=== PATIENT | male | born 1965 | race Caucasian/White ===

== ENCOUNTER 2021-03-05 07:39 | Emergency (ER) | payer SELFPAY ==
[2021-03-05 07:42] VITALS: BP 152/89; PULSE 73; RESP 16; TEMP 37.2; O2SAT 93; BMI 34.4
--- NOTE | 2021-03-05 07:43 | W.ED.WEAKNES ---
HPI - Weakness General: Chief complaint: Weakness Stated complaint: WEAKNESS Time Seen by Provider: 03/05/21 07:42 History of Present Illness: HPI Narrative: 55-year-old male presents to the emergency room via EMS complaining of weakness. He got up this morning went outside to smoke a cigarette got dizzy felt weak went back into the house and laid down on the floor and called EMS. He denies any diarrhea denies any chest pain. No diarrhea no anosmia he has had some moderate myalgias. Denies any fever sweats or flu like symptoms. He has recently been exposed to COVID. He was evidently staying at a group home where 2 people he was in close contact with tested positive. States he feels much better since arriving here. MD Complaint: generalized weakness Onset (ago): minute(s) Duration: intermittent Migration: none Severity: mild Relieving factors: none Exacerbating factors: none Associated symptoms: Denies chest pain, chills, confusion, melena, decreased appetite, diaphoresis, dysuria, easy bruising, fever(s), headache(s), myalgias, nausea, rash, short of breath, syncope or vomiting Review of Systems Const: Denies: fever(s), chills or diaphoresis ENMT: Denies: throat pain, ear or mastoid pain, nasal discharge or nasal congestion Card: Denies: chest pain or syncope Resp: Denies: dyspnea, productive cough or non-productive cough GI: Denies: nausea, vomiting or melena : Denies: dysuria Skin/Breast: Denies: rash or pruritus Neuro: Denies: headache(s) or confusion Abran/Lymph: Denies: easy bruising [facility] ED PFSH: Medical History (Updated 03/05/21 @ 10:31 by Gregory Lazcano DO) HTN (hypertension) Surgical History (Updated 03/05/21 @ 07:57 by Gregory Lazcano DO) H/O hand surgery Social History (Updated 03/05/21 @ 07:57 by Gregory Lazcano DO) Smoking and tobacco status: current every day smoker cigarettes Packs smoked per day: 0.5 Years cigarettes smoked: 40 Number of cigarettes per day: 6-10 Physical Exam Const: COMMON NORMALS: no acute distress GENERAL APPEARANCE: cooperative and comfortable ORIENTATION/CONSCIOUSNESS: Yes awake, Yes oriented to person, Yes oriented to place and Yes oriented to time HENMT: COMMON NORMALS: normocephalic, atraumatic and hearing grossly normal bilaterally HEAD & SCALP: normocephalic and atraumatic Neck/C-Spine: COMMON NORMALS: no JVD Resp: COMMON NORMALS: normal respiratory effort, No retractions, No use of accessory muscles and clear to auscultation bilaterally AUSCULTATION: clear to auscultation bilaterally Cardio: COMMON NORMALS: no JVD, regular rate, regular rhythm and No murmurs present (Cardio) RATE: regular rate RHYTHM: regular rhythm GI: COMMON NORMALS: Soft to palpation and No hepatosplenomegaly present AUSCULTATION: Yes normoactive bowel sounds PALPATION: Yes Soft to palpation, No Tenderness to palpation present (GI), No Guarding due to palpation present (GI) and Yes No hepatosplenomegaly present Extremity: COMMON NORMALS: normal to inspection, capillary refill normal, no clubbing, cyanosis or edema, no calf tenderness and no pedal edema Neuro: SENSORIUM/ORIENTATION: Yes oriented to person, Yes oriented to place and Yes oriented to time Skin: COMMON NORMALS: no rashes or lesions noted GENERAL SKIN EXAM: no rashes or lesions noted Course Vital Signs: Vital signs: Vital Signs Temperature 99.0 F 03/05/21 07:42 Pulse Rate 83 03/05/21 11:39 Respiratory Rate 13 03/05/21 11:39 Blood Pressure 180/103 03/05/21 11:39 Pulse Oximetry 95 03/05/21 11:39 MDM - Weakness MDM Narrative: Medical decision making narrative: Patient is hypertensive. Does not require oxygen. Labs imaging and EKG reviewed on the chart is COVID was positive.'s troponin decreased is EKG does not show any acute changes. We will go ahead and discharge the patient home supportive cares set him up for follow-up with telehealth. He did go home with home oxygen. Lab Data: Labs: Lab Results 03/05/21 03/05/21 03/05/21 07:55 07:55 07:55 WBC 5.3 10^3/uL 10^3/ uL (4.0-10.0) RBC 5.17 10^6/uL 10^6 /uL (4.1-5.3) Hgb 15.4 g/dL g/dL (11.7-16.6) Hct 46.5 % % (42.0-52.0) MCV 89.9 fl fl (80-94) MCH 29.8 pg pg (28.0-34.0) MCHC 33.1 g/dL g/dL (30.0-36.0) RDW 13.9 % % (12.1-15.1) Plt Count 108 10^3/cmm L 10 ^3/cmm (130-400) MPV 10.7 fL H fL (7.4-10.4) Neut % (Auto) 72.3 % % Lymph % (Auto) 21.9 % % George % (Auto) 5.2 % % Eos % (Auto) 0.2 % % Baso % (Auto) 0.2 % % Neut # (Auto) 3.86 10^3/uL 10^3 /uL (1.8-7.7) Lymph # (Auto) 1.2 10^3/uL 10^3/ uL (0.8-4.8) [place] # (Auto) 0.3 10^3/uL 10^3/ uL (0.2-0.9) Eos # (Auto) 0.0 10^3/uL 10^3/ uL (0.0-0.8) Baso # (Auto) 0.0 10^3/uL 10^3/ uL (0.0-0.1) Nucleated RBC % (a uto) 0 % % Nucleated RBCs # 0.0 /100WBC /100W BC Sodium 127 mmol/L L mmol /L (136-145) Potassium 3.5 mmol/L mmol/L (3.5-5.1) Chloride 91 mmol/L L mmol/ L (98-107) Carbon Dioxide 23 mmol/L mmol/L (22-29) Anion Gap 16.5 (5-19) BUN 13 mg/dL mg/dL (6-20) Creatinine 1.2 mg/dL mg/dL (0.7-1.2) GFR Calculation 63.1 mL/min L mL/ min (90-130) Glucose 98 mg/dL mg/dL (65-115) Calculated Osmolal ity 264 mOsm/kg L mOs m/kg (285-295) Calcium 8.9 mg/dL mg/dL (8.5-10.5) Total Bilirubin 0.3 mg/dL mg/dL (0.15-1.2) AST 15 U/L U/L (0-40) ALT 11 U/L U/L (0-41) Alkaline Phosphata se 78 IU/L IU/L (40-130) Troponin T Baselin e 33 ng/L H ng/L (0-15) Troponin T 120 Min [place] Delta Troponin T Total Protein 6.7 g/dL g/dL (6.6-8.7) Albumin 4.0 g/dL g/dL (3.5-5.2) Globulin 2.7 g/dL g/dL (1.3-4.6) Coronavirus 229E ( PCR) SARS-CoV-2 (PCR) 03/05/21 03/05/21 08:15 10:05 WBC RBC Hgb Hct MCV MCH MCHC RDW Plt Count MPV Neut % (Auto) Lymph % (Auto) [place] % (Auto) Eos % (Auto) Baso % (Auto) Neut # (Auto) Lymph # (Auto) [place] # (Auto) Eos # (Auto) Baso # (Auto) Nucleated RBC % (a uto) Nucleated RBCs # Sodium Potassium Chloride Carbon Dioxide Anion Gap BUN Creatinine GFR Calculation Glucose Calculated Osmolal ity Calcium Total Bilirubin AST ALT Alkaline Phosphata se Troponin T Baselin e Troponin T 120 Min [place] 27.50 ng/L H ng/L (0-15) Delta Troponin T -5.50 ABS# L ABS# (0-10) Total Protein Albumin Globulin Coronavirus 229E ( PCR) Not detected (NOT DETECT) SARS-CoV-2 (PCR) Detected A (NOT DETECT) Discharge Plan Discharge Patient Disposition: Home Clinical Impression: COVID-19, HTN (hypertension) Condition: Stable Prescriptions: New dexamethasone 6 mg tablet 6 mg PO DAILY Qty: 7 RF: 0 amlodipine 5 mg tablet 5 mg PO DAILY Qty: 30 RF: 0 albuterol sulfate 90 mcg/actuation HFA aerosol inhaler 2 inh INHALATION Q4H PRN (Reason: shortness of breath or wheezing) Qty: 18 RF: 0 Discharge Orders: Discharge ED (Routine); Ordered 03/05/21 Ordered By: Gregory Lazcano Other Ambulatory Orders: DME: Oxygen (EVERY OTHER DAY) Timeframe: [id number] Location: None Selected Ordered By: Gregory Lazcano Discharge Diet: Usual diet Discharge Activity: Increase activity as tolerated Patient Instructions: Droplet Precautions (ED), COVID-19 (Coronavirus Disease 2019) (ED), How to Recover from COVID-19 at Home (ED), Opioid Safety Activity Restrictions/Additional Instructions: Maintain self quarantine due to the COVID test. Health department will call you with further instructions. We will set you up for home oxygen and started on oral steroids use albuterol as needed. Case management to make arrangements for a telehealth visit follow-up with the midlevel provider. Return to emergency room for further problems. Coding Level of Care Code ED Automotive Specialty Technician for Meghann Fwd Exam Comprehensive
--- NOTE | 2021-03-05 07:51 | XRR_ITS ---
PROCEDURE INFORMATION: Exam: XR Chest Exam date and time: 03/05/2021 7:51 AM Age: 55 years old Clinical indication: Cough and dyspnea; Additional info: Dyspnea/cough TECHNIQUE: Imaging protocol: XR of the chest. Views: 1 view. COMPARISON: No relevant prior studies available. FINDINGS: Lungs: Mildly increased interstitial markings at the lung bases. No consolidation. Pleural spaces: Unremarkable. No pleural effusion. No pneumothorax. Heart/Mediastinum: Unremarkable. No cardiomegaly. Bones/joints: Unremarkable. XR/XR chest 1V portable [id number] IMPRESSION: Nonspecific mildly increased interstitial markings lung bases. No consolidation.
--- NOTE | 2021-03-05 07:53 | ECG_ITS ---
[facility] Test Date: 2021-03-05 Pat Name: Lj Wynn Department: Room: Gender: Male Obstetrical Nurse: : 1965 Requested By: Gregory Molina Order Number: [id number] Roopa MD: Pura Paulino M.D. Measurements Intervals [place] Rate: 74 P: 17 TX: 141 QRS: 4 QRSD: 102 T: 28 QT: 395 QTc: 438 Interpretive Statements SINUS RHYTHM ST DEVIATION AND MODERATE T-WAVE ABNORMALITY, CONSIDER LATERAL ISCHEMIA [-0.1+ mV T-WAVE IN I/aVL/V5/V6] No previous ECG available for comparison Electronically Signed On 03-06-2021 8:16:54 PHOTOGRAPHIC EQUIPMENT TECHNICIAN by Pura Paulino M.D. [id number]
[2021-03-05 08:06] LABS: Basophils % 0.2 %; Eosinophils % 0.2 %; Hematocrit 46.5 % (42.0-52.0); Hemoglobin 15.4 g/dL (11.7-16.6); Lymphocytes # 1.2 10^3/uL (0.8-4.8); Lymphocytes % 21.9 %; Mean Corpuscular HGB Conc 33.1 g/dL (30.0-36.0); Mean Corpuscular Hemoglobin 29.8 pg (28.0-34.0); Mean Corpuscular Volume 89.9 fl (80-94); Mean Platelet Volume 10.7 fL (7.4-10.4); Monocytes # 0.3 10^3/uL (0.2-0.9); Monocytes % 5.2 %; Neutrophils # 3.86 10^3/uL (1.8-7.7); Neutrophils % 72.3 %; Nucleated Red Blood Cells % 0 %; Platelet Count 108 10^3/cmm (130-400); Red Blood Count 5.17 10^6/uL (4.1-5.3); Red Cell Distribution Width 13.9 % (12.1-15.1); White Blood Count 5.3 10^3/uL (4.0-10.0)
[2021-03-05 08:17] VITALS: BP 149/80; PULSE 74; RESP 22; O2SAT 96
[2021-03-05 08:21] LABS: Alanine Aminotransferase 11 U/L (0-41); Alkaline Phosphatase 78 IU/L (40-130); Anion Gap 16.5 (5-19); Aspartate Amino Transferase 15 U/L (0-40); Blood Urea Nitrogen 13 mg/dL (6-20); Calcium 8.9 mg/dL (8.5-10.5); Carbon Dioxide 23 mmol/L (22-29); Chloride 91 mmol/L (98-107); Globulin 2.7 g/dL (1.3-4.6); Glomerular Filtration Rate 63.1 mL/min (90-130); Glucose 98 mg/dL (65-115); Osmolality Calculated 264 mOsm/kg (285-295); Potassium 3.5 mmol/L (3.5-5.1); Sodium 127 mmol/L (136-145); Total Bilirubin 0.3 mg/dL (0.15-1.2); Total Protein 6.7 g/dL (6.6-8.7)
[2021-03-05 08:23] LABS: Troponin(5th) Baseline 33 ng/L (0-15)
[2021-03-05 10:11] LABS: Adenovirus Not Detected (NOT DETECT); Chlamydia Pneumoniae Not Detected (NOT DETECT); Coronavirus 229E,HKU1,NL63,OC4 Not Detected (NOT DETECT); Human Metapneumovirus Not Detected (NOT DETECT); Human Rhinovirus/Enterovirus Not Detected (NOT DETECT); Influenza A Not Detected (NOT DETECT); Influenza A H1 Not Detected (NOT DETECT); Influenza A H1-2009 Not Detected (NOT DETECT); Influenza A H3 Not Detected (NOT DETECT); Influenza B Not Detected (NOT DETECT); Mycoplasma Pneumoniae Not Detected (NOT DETECT); Parainfluenza Virus Type 1 Not Detected (NOT DETECT); Parainfluenza Virus Type 2 Not Detected (NOT DETECT); Parainfluenza Virus Type 3 Not Detected (NOT DETECT); Parainfluenza Virus Type 4 Not Detected (NOT DETECT); Respiratory Syncytial Virus A Not Detected (NOT DETECT); Respiratory Syncytial Virus B Not Detected (NOT DETECT); SARS-COV-2 Detected (NOT DETECT)
[2021-03-05 11:10] VITALS: BP 180/103; PULSE 83; RESP 13; O2SAT 94; O2SAT 95; O2SAT 96
[2021-03-05 11:39] VITALS: BP 180/103; PULSE 83; RESP 13; O2SAT 95
--- NOTE | 2021-03-07 10:04 | PC.SOCIAL ---
Received referral for Telehealth visit for follow up FARIHA. Called [facility] office they could do this visit today at 11am however unable to reach. Left message for patient to return call and there is only one number for patient and the same number for contact. If patient returns call will see what timeframes he has available to try and schedule an appt.
== END 2021-03-05 11:39 | disposition home or self-care (01) ==
PROVIDERS: Emergency Provider Family Medicine
DX: U07.1 COVID-19 (principal); I10 Essential (primary) hypertension; Z20.822 Contact with and (suspected) exposure to COVID-19; F17.210 Nicotine dependence, cigarettes, uncomplicated
CPT/HCPCS: 36415; 71045; 80053; 84484; 85025; 87635; 93005; 99284

== ENCOUNTER 2021-11-26 13:01 | Inpatient (IN) | payer MEDICAID, SELFPAY ==
[2021-11-26] VITALS (32 sets, daily range): BP systolic 150–269; BP diastolic 81–152; PULSE 58–94; RESP 8–25; TEMP 36.5–36.6; O2SAT 89–98
--- NOTE | 2021-11-26 13:10 | XRR_ITS ---
PROCEDURE INFORMATION: Exam: XR Chest Exam date and time: 11/26/2021 1:24 PM Age: 56 years old Clinical indication: Other: HTN, vomiting, weakness; Additional info: Dyspnea/cough TECHNIQUE: Imaging protocol: Radiologic exam of the chest. Views: 1 view. COMPARISON: CR XR chest 1V portable [id number] 03/05/2021 8:19 AM FINDINGS: Lungs: Unremarkable. No consolidation. Pleural spaces: Unremarkable. No pleural effusion. No pneumothorax. Heart/Mediastinum: Unremarkable. No cardiomegaly. Bones/joints: Unremarkable. XR/XR chest 1V portable [id number] IMPRESSION: No acute findings.
--- NOTE | 2021-11-26 13:18 | W.ED.GENADLT ---
HPI - General Adult General: Chief complaint: General Medical Stated complaint: N/V Time Seen by Provider: 11/26/21 13:09 Source: patient Mode of arrival: EMS History of Present Illness: 56-year-old male who presents emergency room via ambulance from a local homeless [place] [facility]. He states been lightheaded dizzy when he stands up and is a couple episodes where he is felt fallen due to that. Additionally has had some vomiting and reporting its been slightly dark in color. No hematemesis. He denies any chest pain denies any dysuria urgency or frequency. Patient has significant Blood pressure elevation no focal neurologic deficits are noted Onset (ago): day(s) (1) Radiation: non-radiation Severity: mild Pain Consistency: constant Relieving factors: none Exacerbating factors: none Associated symptoms: Reports nausea and vomiting; Deny chest pain, confusion, cough, diaphoresis, decreased appetite, dyspnea, fevers/chills, headache(s), malaise, rash, palpitations, seizures, short of breath, syncope or weakness Treatments prior to arrival: none Review of Systems Const: Denies: fever(s), chills, malaise or diaphoresis ENMT: Denies: throat pain, ear or mastoid pain, nasal discharge or nasal congestion Card: Denies: chest pain, palpitations or syncope Resp: Denies: dyspnea GI: Reports: nausea, vomiting and coffee ground emesis; Denies: abdominal pain : Denies: flank pain, dysuria, urinary frequency or urinary urgency Musc: Denies: neck pain or back pain Skin/Breast: Denies: rash Neuro: Denies: headache(s) or confusion PFSH ED PFSH: Medical History COVID-19 Diastolic heart failure due to valvular disease Financial difficulty HTN (hypertension) Nicotine dependence Polycythemia Sheltered homelessness Stroke Uncontrolled hypertension Surgical History H/O hand surgery Family History Father Hypertension Other Hyperlipidemia Denies family history of Diabetes CAD (coronary artery disease) Clotting disorder Dementia Chronic kidney disease (CKD) Anesthesia complication Bleeding disorder Lung disease Cancer Stroke Social History (Reviewed 12/10/21 @ 20:57 by CONSTANZA Strickland Smoking and tobacco status: current every day smoker cigarettes Packs smoked per day: 0.5 Years cigarettes smoked: 40 [ Other cigarette details: 05 PPD since 8yrs old. 24PY. longest time quit for was 6 months.] Alcohol intake: former Former alcohol use details: Quit due to inability to afford alcohol Desire information about alcohol rehabilitation?: No Counseling given: No Substance/Drug Use: never Desire information about substance/drug rehabilitation?: No Counseling given: No Adopted: No Caregiver/support person: No Lives independently: No service: No Current occupational status: unemployed Current gender identity: Male Special walter needs: No Physical Exam Const: COMMON NORMALS: no acute distress GENERAL APPEARANCE: cooperative and comfortable ORIENTATION/CONSCIOUSNESS: Yes awake, Yes oriented to person, Yes oriented to place and Yes oriented to time HENMT: COMMON NORMALS: normocephalic, atraumatic and hearing grossly normal bilaterally HEAD & SCALP: normocephalic and atraumatic Resp: COMMON NORMALS: normal respiratory effort, No retractions, No use of accessory muscles and clear to auscultation bilaterally AUSCULTATION: clear to auscultation bilaterally Cardio: COMMON NORMALS: regular rate, regular rhythm and No murmurs present (Cardio) RATE: regular rate RHYTHM: regular rhythm GI: COMMON NORMALS: Soft to palpation and No hepatosplenomegaly present AUSCULTATION: Yes normoactive bowel sounds PALPATION: Yes Soft to palpation, No Tenderness to palpation present (GI), No Guarding due to palpation present (GI) and Yes No hepatosplenomegaly present Extremity: COMMON NORMALS: normal to inspection, capillary refill normal, no clubbing, cyanosis or edema, no calf tenderness and no pedal edema Neuro: SENSORIUM/ORIENTATION: Yes oriented to person, Yes oriented to place and Yes oriented to time Skin: COMMON NORMALS: no rashes or lesions noted GENERAL SKIN EXAM: no rashes or lesions noted Course Vital Signs: Vital signs: Vital Signs Temperature 97.4 F L 11/29/21 15:16 Pulse Rate 90 11/29/21 15:16 Respiratory Rate 18 11/29/21 15:16 Blood Pressure 153/89 11/29/21 15:32 Pulse Oximetry 98 11/29/21 15:16 Oxygen Delivery Pa thod 11/29/21 08:05 [facility] - General Adult Medical Decision Making Elevation of blood pressure despite multiple medications there is no evidence of acute upper GI bleed however he does have accelerated hypertension and is nonresponsive to multiple medications. Will admit discussed with hospitalist orders written Medical Records I reviewed the patient's medical records. Lab Data I reviewed the patient's lab results. : 11/28/21 02:21 11/28/21 02:21 Radiology Impressions Chest X-Ray 11/26/21 13:10 IMPRESSION: No acute findings. Head CT 11/26/21 17:48 IMPRESSION: No acute intracranial abnormality. Renal Ultrasound 11/26/21 18:27 IMPRESSION: 1. Negative for renal obstruction. 2. No convincing sonographic evidence of Urolithiasis. Laboratory Results WBC 9.0 10^3/uL (4.0-10.0) 11/26/21 13:20 RBC 5.61 10^6/uL (4.1-5.3) H 11/26/21 13:20 Hgb 17.3 g/dL (11.7-16.6) H 11/26/21 13:20 Hct 51.3 % (42.0-52.0) 11/26/21 13:20 MCV 91.4 fl (80-94) 11/26/21 13:20 MCH 30.8 pg (28.0-34.0) 11/26/21 13:20 MCHC 33.7 g/dL (30.0-36.0) 11/26/21 13:20 RDW 12.6 % (12.1-15.1) 11/26/21 13:20 Plt Count 222 10^3/cmm (130-400) 11/26/21 13:20 MPV 10.2 fL (7.4-10.4) 11/26/21 13:20 Neut % (Auto) 78.6 % 11/26/21 13:20 Lymph % (Auto) 15.6 % 11/26/21 13:20 [place] % (Auto) 4.6 % 11/26/21 13:20 Eos % (Auto) 0.6 % 11/26/21 13:20 Baso % (Auto) 0.4 % 11/26/21 13:20 Neut # (Auto) 7.05 10^3/uL (1.8-7.7) 11/26/21 13:20 Lymph # (Auto) 1.4 10^3/uL (0.8-4.8) 11/26/21 13:20 [place] # (Auto) 0.4 10^3/uL (0.2-0.9) 11/26/21 13:20 Eos # (Auto) 0.1 10^3/uL (0.0-0.8) 11/26/21 13:20 Baso # (Auto) 0.0 10^3/uL (0.0-0.1) 11/26/21 13:20 Nucleated RBC % (auto) 0 % 11/26/21 13:20 Nucleated RBCs # 0.0 /100WBC 11/26/21 13:20 Sodium 140 mmol/L (136-145) 11/26/21 13:20 Potassium 3.6 mmol/L (3.5-5.1) 11/26/21 13:20 Chloride 95 mmol/L (98-107) L 11/26/21 13:20 Carbon Dioxide 33 mmol/L (22-29) H 11/26/21 13:20 Anion Gap 15.6 (5-19) 11/26/21 13:20 BUN 11 mg/dL (6-20) 11/26/21 13:20 Creatinine 1.0 mg/dL (0.7-1.2) 11/26/21 13:20 GFR Calculation 77.6 mL/min (90-130) L 11/26/21 13:20 Glucose 111 mg/dL (65-115) 11/26/21 13:20 Calculated Osmolality 290 mOsm/kg (285-295) 11/26/21 13:20 Calcium 9.7 mg/dL (8.5-10.5) 11/26/21 13:20 Total Bilirubin 0.5 mg/dL (0.15-1.2) 11/26/21 13:20 AST 10 U/L (0-40) 11/26/21 13:20 ALT 9 U/L (0-41) 11/26/21 13:20 Alkaline Phosphatase 121 U/L (40-130) 11/26/21 13:20 Troponin T Baseline 18 ng/L (0-15) H 11/26/21 13:20 Troponin T 120 Minute 17.37 ng/L (0-15) H 11/26/21 15:12 Delta Troponin T -0.63 ABS# (0-10) L 11/26/21 15:12 Troponin T Hi Sens 6Hr 20.26 ng/L (0-15) H 11/26/21 19:00 Troponin T Hi Sens 6Hr Delta 2.26 ng/L (0-12) 11/26/21 19:00 Total Protein 7.7 g/dL (6.6-8.7) 11/26/21 13:20 Albumin 4.6 g/dL (3.5-5.2) 11/26/21 13:20 Globulin 3.1 g/dL (1.3-4.6) 11/26/21 13:20 Lipase 18 U/L (13-60) 11/26/21 13:20 Urine Color Yellow (Yellow) 11/26/21 17:01 Urine Appearance Clear (CLEAR) 11/26/21 17: Urine pH 6.5 (5-7) 11/26/21 17: Ur Specific [place] 1.025 (1.005-1.030) 11/26/21 17: Urine Protein 2+ 11/26/21 17: Urine Glucose (UA) Negative (Normal) 11/26/21 17: Urine Ketones 1+ (Negative) A 11/26/21 17: Urine Blood Moderate (Negative) A 11/26/21 17: Urine Nitrate Negative 11/26/21 17: Urine Bilirubin Negative (Negative) 11/26/21 17: Urine Urobilinogen 0.2 mg/dL (Negative) 11/26/21 17: Ur Leukocyte Esterase Negative (Negative) 11/26/21 17:01 Urine RBC 5-10 /hpf (0-2) H 11/26/21 17:01 Urine WBC 0-4 /hpf (0-5) H 11/26/21 17:01 Ur Squamous Epith Cells None /hpf (0-5) 11/26/21 17: Amorphous Sediment Not Reportable 11/26/21 17: Urine Bacteria Trace /hpf (NONE) 11/26/21 17:01 Urine Mucus 2+ /hpf 11/26/21 17:01 Discharge Plan Discharge Patient Disposition: Admitted As Inpatient Admit Provider: Manuel,Talavera Clinical Impression: Malignant hypertensive urgency, Stage 3b chronic kidney disease (CKD), Elevated serum creatinine, Diastolic heart failure due to valvular disease Condition: Stable Coding Level of Care Code ED Research Study Assistant for Meghann Fwd Exam Detailed
--- NOTE | 2021-11-26 13:21 | ECG_ITS ---
[facility] Test Date: 2021-11-26 Pat Name: Lj Wynn Department: Room: Gender: Male Bellows Assembler: : 1965 Requested By: Gregory Molina Order Number: [id number] Roopa MD: Rodo Graham M.D. Measurements Intervals [place] Rate: 72 P: 58 MO: 149 QRS: 38 QRSD: 106 T: 63 QT: 447 QTc: 490 Interpretive Statements SINUS RHYTHM NONSPECIFIC ST & T-WAVE ABNORMALITY PROLONGED QT INTERVAL Compared to ECG 03/05/2021 08:13:11 Prolonged QT interval now present Possible ischemia no longer present T-wave abnormality still present Electronically Signed On 11-27-2021 22:03:04 CDT by Rodo Graham M.D. [id number]
[2021-11-26 13:26] LABS: Basophils % 0.4 %; Eosinophils # 0.1 10^3/uL (0.0-0.8); Eosinophils % 0.6 %; Hematocrit 51.3 % (42.0-52.0); Hemoglobin 17.3 g/dL (11.7-16.6); Lymphocytes # 1.4 10^3/uL (0.8-4.8); Lymphocytes % 15.6 %; Mean Corpuscular HGB Conc 33.7 g/dL (30.0-36.0); Mean Corpuscular Hemoglobin 30.8 pg (28.0-34.0); Mean Corpuscular Volume 91.4 fl (80-94); Mean Platelet Volume 10.2 fL (7.4-10.4); Monocytes # 0.4 10^3/uL (0.2-0.9); Monocytes % 4.6 %; Neutrophils # 7.05 10^3/uL (1.8-7.7); Neutrophils % 78.6 %; Nucleated Red Blood Cells % 0 %; Platelet Count 222 10^3/cmm (130-400); Red Blood Count 5.61 10^6/uL (4.1-5.3); Red Cell Distribution Width 12.6 % (12.1-15.1)
[2021-11-26] MEDS: ondansetron 2 mg/ML SDV 2 mL 4 MG IVP (13:42)
[2021-11-26] MEDS: sodium chloride 0.9% 1,000 ML 999 ML IV (13:42)
[2021-11-26 14:04] LABS: Alanine Aminotransferase 9 U/L (0-41); Albumin Level 4.6 g/dL (3.5-5.2); Alkaline Phosphatase 121 U/L (40-130); Anion Gap 15.6 (5-19); Aspartate Amino Transferase 10 U/L (0-40); Blood Urea Nitrogen 11 mg/dL (6-20); Calcium 9.7 mg/dL (8.5-10.5); Carbon Dioxide 33 mmol/L (22-29); Chloride 95 mmol/L (98-107); Globulin 3.1 g/dL (1.3-4.6); Glomerular Filtration Rate 77.6 mL/min (90-130); Glucose 111 mg/dL (65-115); Lipase 18 U/L (13-60); Osmolality Calculated 290 mOsm/kg (285-295); Potassium 3.6 mmol/L (3.5-5.1); Sodium 140 mmol/L (136-145); Total Bilirubin 0.5 mg/dL (0.15-1.2); Total Protein 7.7 g/dL (6.6-8.7)
[2021-11-26 14:05] LABS: Troponin(5th) Baseline 18 ng/L (0-15)
[2021-11-26] MEDS: enalaprilat 1.25 mg/mL Inj IVP (14:05)
[2021-11-26] MEDS: lisinopril 20 mg Tablet PO (14:05)
[2021-11-26] MEDS: labetalol 5 mg/mL SDV 20mL 10 MG IVP (14:05)
[2021-11-26] MEDS: amlodipine 5 mg Tablet PO (14:05)
[2021-11-26 15:35] LABS: Troponin 5 2HR 17.37 ng/L (0-15)
[2021-11-26 15:43] LABS: Troponin 5 2HR Delta -0.63 ABS# (0-10)
--- NOTE | 2021-11-26 16:25 | ECG_ITS ---
[facility] Test Date: 2021-11-26 Pat Name: Lj Wynn Department: Room: Gender: Male Photographic Colorist: : 1965 Requested By: Gregory Molina Order Number: [id number] Roopa MD: Rodo Graham M.D. Measurements Intervals [place] Rate: 63 P: 54 FL: 161 QRS: 28 QRSD: 106 T: 52 QT: 431 QTc: 441 Interpretive Statements SINUS RHYTHM ST DEVIATION AND MODERATE T-WAVE ABNORMALITY, CONSIDER LATERAL ISCHEMIA [-0.1+ mV T-WAVE IN I/aVL/V5/V6] Compared to ECG 11/26/2021 13:21:23 Possible ischemia now present Prolonged QT interval no longer present T-wave abnormality still present Electronically Signed On 11-27-2021 22:06:34 CDT by Rodo Graham M.D. [id number]
[2021-11-26 17:16] LABS: Bilirubin Urine Negative (Negative); Blood Urine Moderate (Negative); Glucose Urine UA Negative (Normal); Ketones Urine 1+ (Negative); Leukocyte Esterase Urine Negative (Negative); Nitrate Urine Negative; Protein Urine 2+; Specific Gravity, Urine 1.025 (1.005-1.030); Urine Appearance Clear (CLEAR); Urine Color Yellow (Yellow); Urobilinogen Urine 0.2 mg/dL (Negative); pH Urine 6.5 (5-7)
[2021-11-26 17:18] LABS: Add Urine Microscopic? YES
[2021-11-26 17:33] LABS: Bacteria Urine TRACE /hpf; WBC Urine 0-4 /hpf (0-5)
[2021-11-26 17:34] LABS: Add Urine Culture? No; Mucus Urine 2+ /hpf
[2021-11-26] MEDS: nicardipine 20 MG/200 ML PREMIX 50 MG IV (17:36)
--- NOTE | 2021-11-26 17:48 | CTR_ITS ---
PROCEDURE INFORMATION: Exam: CT Head Without Contrast Exam date and time: 11/26/2021 5:56 PM Age: 56 years old Clinical indication: Altered mental status/memory loss; Additional info: AMS TECHNIQUE: Imaging protocol: Computed tomography of the head without contrast. Radiation optimization: All CT scans at this facility use at least one of these dose optimization techniques: automated exposure control; mA and/or kV adjustment per patient size (includes targeted exams where dose is matched to clinical indication); or iterative reconstruction. COMPARISON: No relevant prior studies available. RADIATION DOSE METRICS: Total DLP (mGy-cm): 1153.28 FINDINGS: Brain: Unremarkable. No hemorrhage. Mild patchy low-attenuation periventricular white matter changes. No mass effect. Cerebral ventricles: No ventriculomegaly. Paranasal sinuses: Visualized sinuses are unremarkable. No fluid levels. Mastoid air cells: Visualized mastoid air cells are well aerated. Bones/joints: Unremarkable. No acute fracture. Soft tissues: Unremarkable. CT/CT head wo con* [id number] IMPRESSION: No acute intracranial abnormality.
--- NOTE | 2021-11-26 18:27 | USR_ITS ---
PROCEDURE INFORMATION: Exam: US Retroperitoneal; Complete; Kidneys and Bladder Exam date and time: 11/26/2021 6:33 PM Age: 56 years old Clinical indication: Nausea and vomiting; Patient HX: N/v/d per PT; Additional info: Rule out renal stones TECHNIQUE: Imaging protocol: Real-time ultrasound of the retroperitoneum with image documentation. Complete exam focused on the kidneys and bladder. COMPARISON: No relevant prior studies available. FINDINGS: Right kidney: Right renal length 10.8 cm. Unremarkable parenchyma. Negative for hydronephrosis. Negative for echogenic stones. No perinephric fluid. Left kidney: Left renal length 10.2 cm. Unremarkable parenchyma. Negative for hydronephrosis. Negative for echogenic stones. No perinephric fluid. Aorta: Abdominal aorta is nonaneurysmal. Urinary bladder: No bladder wall thickening. No focal mass identified. US/US renal BI* [id number] IMPRESSION: 1. Negative for renal obstruction. 2. No convincing sonographic evidence of Urolithiasis.
--- NOTE | 2021-11-26 18:28 | PM.HP ---
Providers/Chief Complaint Chief Complaint: N/V History of Present Illness Lj Wynn is a 56 year old male with no significant past medical history other than hypertension, not on any medications at home and nicotine dependence/everyday smoker presented to the hospital via EMS. Patient lives in a local [facility] [place]. He felt lightheaded and dizzy and fell because of it. He also had a little bit of vomiting which he describes that slightly darker in color. He did not see any gross blood in there. Otherwise denies any chest pain, shortness of breath, difficulty swallowing, difficulty urinating, pain with urinating, pain radiating to his upper back or shoulder blades. Denies coughing, shortness of breath, fever, chill, headache, passing out, diarrhea. Denies illicit drug use. Patient is an everyday smoker and smokes half a cigarette a day. He says he used to drink alcohol but not anymore. He says its been a while since he had his last drink. He said he did have some nausea vomiting before coming to the hospital but it is no longer present at this time. Denies marijuana use. Also goes on to state that he is always had high blood pressure but he does not take any medicines. 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 He states that earlier this year he was diagnosed with COVID and took steroids. This was sometime in March. ED course: On arrival blood pressure 269/152, respiratory 16, pulse 82, temperature 97.7, saturating 93% on room air. Chest x-ray showed no acute findings. CT head was ordered. Medications/Allergies Home Medications Medication Instructions Recorded Confirmed Last Taken Type albuterol sulfate 90 mcg/actuation 2 inh inhalation Q4H PRN shortness 03/05/21 Unknown Rx aerosol inhaler of breath or wheezing #18 grams amlodipine 5 mg tablet 5 mg PO DAILY #30 tabs 03/05/21 Unknown Rx dexamethasone 6 mg tablet 6 mg PO DAILY #7 tabs 03/05/21 Unknown Rx Allergies Allergy/AdvReac Type Severity Reaction Status Date / Time Penicillins Allergy ALGY-Anaphy Verified 03/05/21 07:42 laxis PFSH Acute PFSH: Medical History HTN (hypertension) Surgical History H/O hand surgery Social History Smoking and tobacco status: current every day smoker cigarettes Packs smoked per day: 0.5 Years cigarettes smoked: 40 Alcohol intake: former Former alcohol use details: Quit due to inability to afford alcohol Vitals/I&O/Wt Last Vital Signs Temp 97.7 F 11/26/21 13:03 Pulse 63 11/26/21 17:10 Resp 13 11/26/21 17:10 BP 170/82 11/26/21 17:10 Pulse Ox 91 11/26/21 17:10 O2 Del Method 11/26/21 13:10 11/26/21 11/26/21 11/26/21 06:59 14:59 22:59 Intake Total 1026.667 / 1026.667 Balance 1026.667 / 1026.667 Physical Exam Narrative: General: Alert oriented x3, patient seen sitting up in bed appearing comfortable at this time. Patient is a little slow to speak. It seems this is his baseline. Answers appropriately, follows all commands. Able to move all 4 extremities. Neuro exam nonfocal. Cranial nerves II to XII intact. HEENT: Normocephalic, atraumatic, EOMI, breathing normally on room air. Saturating 93%. Cardio: Regular rate rhythm, normal S1-S2, loud heart sounds. Respiratory: Chest clear auscultation bilaterally but diminished throughout. No gross wheezes or rhonchi GI: Abdomen soft, nontender, nondistended, bowel sounds + Extremities: No lower extremity edema, Data : 11/26/21 13:20 11/26/21 13:20 A&P Assessment and plan (1) HTN (hypertension): (2) Malignant hypertensive urgency: (3) Polycythemia: (4) Nicotine dependence: Plan #Hypertensive urgency #Polycythemia most likely secondary to smoking *Nausea vomiting, dizziness most likely secondary to the above ? In ER patient received amlodipine 5 mg x 1, enalapril 1.25 IV push, labetalol 10 mg IV push, lisinopril 20 mg once. He was started on a nicardipine drip. Current blood pressure 193/102. ? Not to lower blood pressure more than 25% for 6 hours. Keep pressure around 1 90-200 systolic till 9 PM. After that may lower gradually over next 24 to 48 hours. ? Drip to be adjusted. ? Patient is not on any medications at home. He has chronic hypertension. We will need to lower his blood pressure gradually over the next few days. ? I have not started any oral medications yet. -We will start on oral medications tomorrow. ? CT head results pending -We will order DuoNeb every 4 hours as needed. First dose now. ? Patient most likely has underlying COPD. Full code DVT prophylaxis: Heparin subcu Clear liquids. Advance diet as tolerated. Patient no longer nauseous. Attestations Medical Necessity Statement*: Patient will require greater than 2 midnight stay for management of hypertensive urgency. Patient has been admitted to ICU for nicardipine drip. Critical Care Time: 45 Coding Level of Care Code Acute Ductfixing Plumber for [facility] Diagnoses HTN (hypertension) I10 Malignant hypertensive urgency I16.0 Polycythemia D75.1 Nicotine dependence F17.200
--- NOTE | 2021-11-26 18:55 | ECG_ITS ---
[facility] Test Date: 2021-11-26 Pat Name: Lj Wynn Department: Room: ICU02 Gender: Male Diamond Polisher: : 1965 Requested By: Gregory Molina Order Number: [id number] Roopa MD: Rodo Graham M.D. Measurements Intervals [place] Rate: 77 P: 60 LA: 164 QRS: 41 QRSD: 109 T: 44 QT: 409 QTc: 463 Interpretive Statements SINUS RHYTHM INCOMPLETE RIGHT BUNDLE BRANCH BLOCK [90+ ms QRS DURATION, TERMINAL R IN V1/V2, 40+ ms S IN I/aVL/V4/V5/V6] POSSIBLE LEFT VENTRICULAR HYPERTROPHY [VOLTAGE CRITERIA PLUS LAE OR QRS WIDENING] NONSPECIFIC ST & T-WAVE ABNORMALITY Compared to ECG 11/26/2021 16:25:48 Incomplete right bundle-branch block now present Possible ischemia no longer present T-wave abnormality still present Electronically Signed On 11-27-2021 22:06:19 CDT by Rodo Graham M.D. [id number]
[2021-11-26] MEDS: heparin 5,000 unit/mL INJ 1 mL 5000 UNIT SUBCUT (19:13)
[2021-11-26 19:38] LABS: Troponin 5 6HR 20.26 ng/L (0-15); Troponin 5 6HR Delta 2.26 ng/L (0-12)
[2021-11-26] MEDS: ipratropium-albuterol 3 mL Neb INHALATION (21:12)
[2021-11-26] MEDS: nicardipine 20 MG/200 ML PREMIX 60 MG IV (21:52)
[2021-11-26] MEDS: nicardipine 20 MG/200 ML PREMIX 65 MG IV (23:18)
[2021-11-27] VITALS (98 sets, daily range): BP systolic 130–215; BP diastolic 63–137; PULSE 57–95; RESP 3–31; TEMP 36.6–37.3; O2SAT 88–97
[2021-11-27 04:58] LABS: Basophils # 0.1 10^3/uL (0.0-0.1); Basophils % 0.6 %; Eosinophils # 0.2 10^3/uL (0.0-0.8); Eosinophils % 1.8 %; Hematocrit 45.9 % (42.0-52.0); Hemoglobin 15.1 g/dL (11.7-16.6); Lymphocytes # 2.2 10^3/uL (0.8-4.8); Lymphocytes % 23.5 %; Mean Corpuscular HGB Conc 32.9 g/dL (30.0-36.0); Mean Corpuscular Hemoglobin 30.2 pg (28.0-34.0); Mean Corpuscular Volume 91.8 fl (80-94); Mean Platelet Volume 10.4 fL (7.4-10.4); Monocytes # 0.6 10^3/uL (0.2-0.9); Neutrophils # 6.44 10^3/uL (1.8-7.7); Neutrophils % 67.9 %; Nucleated Red Blood Cells % 0 %; Platelet Count 204 10^3/cmm (130-400); Red Cell Distribution Width 12.7 % (12.1-15.1); White Blood Count 9.5 10^3/uL (4.0-10.0)
[2021-11-27 05:19] LABS: Alanine Aminotransferase 6 U/L (0-41); Albumin Level 3.6 g/dL (3.5-5.2); Alkaline Phosphatase 100 U/L (40-130); Anion Gap 11.3 (5-19); Aspartate Amino Transferase 9 U/L (0-40); Blood Urea Nitrogen 12 mg/dL (6-20); Calcium 9.5 mg/dL (8.5-10.5); Carbon Dioxide 29 mmol/L (22-29); Chloride 103 mmol/L (98-107); Globulin 2.9 g/dL (1.3-4.6); Glomerular Filtration Rate 100.4 mL/min (90-130); Glucose 90 mg/dL (65-115); Magnesium 2.3 mg/dL (1.7-2.3); Osmolality Calculated 289 mOsm/kg (285-295); Potassium 3.3 mmol/L (3.5-5.1); Sodium 140 mmol/L (136-145); Total Bilirubin 0.4 mg/dL (0.15-1.2); Total Protein 6.5 g/dL (6.6-8.7)
[2021-11-27] MEDS: heparin 5,000 unit/mL INJ 1 mL 5000 UNIT SUBCUT ×2 (06:57→17:34)
[2021-11-27] MEDS: pantoprazole DR 40 mg Tablet PO (08:16)
[2021-11-27] MEDS: amlodipine 10 mg Tablet PO (08:16)
[2021-11-27] MEDS: ipratropium-albuterol 3 mL Neb INHALATION ×4 (08:31→20:25)
--- NOTE | 2021-11-27 08:57 | P.PN_ITS ---
Subjective Subjective: Seen this AM. cardene drip turned off at midnight. oral meds started this AM. Vitals/I&O/Wt Last Vital Signs Temp 98.2 F 11/27/21 05:00 Pulse 69 11/27/21 08:25 Resp 17 11/27/21 08:15 BP 176/114 11/27/21 07:30 Pulse Ox 92 11/27/21 08:15 O2 Del Method 11/27/21 08:15 11/26/21 11/27/21 11/27/21 22:59 06:59 14:59 Intake Total 1209.000 / 1209.000 159.000 / 1368.000 Output Total 300 / 300 325 / 625 Balance 909.000 / 909.000 -166.000 / 743.000 Weight last 48 hrs Weight 94.982 kg Weight 94.982 kg Physical Exam Narrative: General: Alert oriented x3, patient seen sitting up in bed appearing comfortable at this time. Patient is a little slow to speak. It seems this is his baseline. Answers appropriately, follows all commands. Able to move all 4 extremities. Neuro exam nonfocal. HEENT: Normocephalic, atraumatic, EOMI, breathing normally on room air. Saturating 93%. Cardio: Regular rate rhythm, normal S1-S2, loud heart sounds. Respiratory: Chest clear auscultation bilaterally but diminished throughout. No gross wheezes or rhonchi GI: Abdomen soft, nontender, nondistended, bowel sounds + Extremities: No lower extremity edema, Data : 11/27/21 04:42 11/27/21 04:42 A&P Assessment and plan (1) HTN (hypertension): (2) Malignant hypertensive urgency: (3) Polycythemia: (4) Nicotine dependence: Plan #Hypertensive urgency #Polycythemia most likely secondary to smoking *Nausea vomiting, dizziness most likely secondary to the above ? In ER patient received amlodipine 5 mg x 1, enalapril 1.25 IV push, labetalol 10 mg IV push, lisinopril 20 mg once. He was started on a nicardipine drip. Current blood pressure 193/102. ? Not to lower blood pressure more than 25% for 6 hours. Cardene drip stopped at midnight. ? Patient is not on any medications at home. He has chronic hypertension. We will need to lower his blood pressure gradually over the next few days. ? CT head negative for stroke - STart amlodipine 10 daily and hydralazine 50 TID. Will gradually lower BP. Not to aggressively lower. -We will order DuoNeb every 4 hours as needed. ? Patient most likely has underlying COPD. - Recheck UA. Blood and protein in urine. Pt may need further workup Full code DVT prophylaxis: Heparin subcu cardiac low salt diet Attestations Medical Necessity Statement*: Patient will require greater than 2 midnight stay for management of hypertensive urgency. Patient has been admitted to ICU for nicardipine drip. Critical Care Time: 45 Coding Level of Care Code Acute System Development Manager for [facility] Fwd Diagnoses HTN (hypertension) I10 Malignant hypertensive urgency I16.0 Polycythemia D75.1 Nicotine dependence F17.200
[2021-11-27] MEDS: hyDRALAzine 25 mg Tablet PO (09:32)
[2021-11-27] MEDS: potassium chloride ER 20 mEq Tablet 40 MEQ PO (12:52)
[2021-11-27] MEDS: lisinopril 20 mg Tablet PO (14:23)
[2021-11-27] MEDS: hyDRALAzine 50 mg Tablet PO ×2 (14:23→20:05)
[2021-11-27 14:24] LABS: Bilirubin Urine Negative (Negative); Blood Urine Trace-intact (Negative); Glucose Urine UA Negative (Normal); Ketones Urine Trace (Negative); Leukocyte Esterase Urine Negative (Negative); Nitrate Urine Negative; Protein Urine Trace; Urine Appearance Clear (CLEAR); Urine Color Yellow (Yellow); Urobilinogen Urine 0.2 mg/dL (Negative)
[2021-11-27 14:29] LABS: Bacteria Urine TRACE /hpf
[2021-11-27 14:30] LABS: Add Urine Culture? No
[2021-11-27] MEDS: chlorthalidone 25 mg Tablet PO (17:34)
--- NOTE | 2021-11-27 20:00 | PC.NURSE ---
Progress Note Patient got up to use restroom unattended and did not use call light, upon entering restroom patient fell on his back. Fall witnessed by nurse in next door room. Patient alert/oriented after fall, reporting pain in back that comes and goes . This nurse notified caustic cresylate shift superintendent hospitalist, who gave orders to monitor patient. Pt assisted back to bed and bed alarm set.
[2021-11-27] MEDS: labetalol 5 mg/mL SDV 20mL 10 MG IVP (23:19)
[2021-11-28] VITALS (40 sets, daily range): BP systolic 132–215; BP diastolic 79–125; PULSE 49–90; RESP 8–24; TEMP 36.6–36.9; O2SAT 89–97
[2021-11-28] MEDS: cloNIDine 0.1 mg Tablet 0.2 MG PO (00:02)
[2021-11-28 03:12] LABS: Basophils % 0.4 %; Eosinophils # 0.2 10^3/uL (0.0-0.8); Eosinophils % 1.6 %; Hematocrit 41.8 % (42.0-52.0); Hemoglobin 13.9 g/dL (11.7-16.6); Lymphocytes # 1.9 10^3/uL (0.8-4.8); Mean Corpuscular HGB Conc 33.3 g/dL (30.0-36.0); Mean Corpuscular Hemoglobin 30.9 pg (28.0-34.0); Mean Corpuscular Volume 92.9 fl (80-94); Mean Platelet Volume 10.7 fL (7.4-10.4); Monocytes # 0.5 10^3/uL (0.2-0.9); Monocytes % 4.9 %; Neutrophils # 7.31 10^3/uL (1.8-7.7); Neutrophils % 73.8 %; Nucleated Red Blood Cells % 0 %; Platelet Count 188 10^3/cmm (130-400); White Blood Count 9.9 10^3/uL (4.0-10.0)
[2021-11-28 03:32] LABS: Anion Gap 13.4 (5-19); Blood Urea Nitrogen 14 mg/dL (6-20); Calcium 9.2 mg/dL (8.5-10.5); Carbon Dioxide 26 mmol/L (22-29); Chloride 100 mmol/L (98-107); Glomerular Filtration Rate 77.6 mL/min (90-130); Glucose 112 mg/dL (65-115); Magnesium 2.2 mg/dL (1.7-2.3); Osmolality Calculated 283 mOsm/kg (285-295); Potassium 3.4 mmol/L (3.5-5.1); Sodium 136 mmol/L (136-145)
[2021-11-28] MEDS: heparin 5,000 unit/mL INJ 1 mL 5000 UNIT SUBCUT ×2 (06:16→18:12)
[2021-11-28] MEDS: lisinopril 20 mg Tablet PO (07:27)
[2021-11-28] MEDS: amlodipine 10 mg Tablet PO (07:27)
[2021-11-28] MEDS: pantoprazole DR 40 mg Tablet PO (07:27)
[2021-11-28] MEDS: hyDRALAzine 50 mg Tablet PO (07:28)
[2021-11-28] MEDS: chlorthalidone 25 mg Tablet PO (07:29)
--- NOTE | 2021-11-28 08:13 | USCV_ITS ---
Kingsley Lj Age: 56 Gender: M : 1965 Exam Date: 11/28/2021 09:34 Ordering Phys: Luis Trevino MD Technologist: Jericho Barron Exam Location: [facility] [place] Indication: Uncontrolled hnt BP: / HR: 76 Rhythm: Sinus Technical Quality: Adequate MEASUREMENTS (Male / Female) Normal Values 2D ECHO LV Diastolic Diameter PLAX 4.6 cm 4.2 - 5.9 / 3.9 - 5.3 cm LV Systolic Diameter PLAX 3.4 cm IVS Diastolic Thickness 2.5 cm 0.6 - 1.0 / 0.6 - 0.9 cm IVS Systolic Thickness 2.7 cm LVPW Diastolic Thickness 1.3 cm 0.6 - 1.0 / 0.6 - 0.9 cm LVPW Systolic Thickness 1.8 cm LVOT Diameter 2.0 cm LV Ejection Fraction 2D Teich 50.7 % LV Ejection Fraction MOD 2C 58.6 % LV Ejection Fraction 2C AL 58.1 % LA Diameter 3.8 cm Aorta at Sinotubular Diameter 2.9 cm IVC Diameter 1.4 cm M-MODE Aortic Annulus Diameter 3.5 cm LA Ao Ratio MM 1.3 MV E Point Septal Separation 1.1 cm DOPPLER AV Peak Velocity 235.0 cm/s LVOT Peak Velocity 138.0 cm/s AV Area Cont Eq vti 2.0 cm squared AV Area Cont Eq pk 1.9 cm squared MV Area PHT 5.0 cm squared Mitral E to A Ratio 0.7 MV E' Velocity 42.5 cm/s Mitral E to MV E' Ratio 16.1 Mitral E to LV E' Lateral Ratio 17.8 Mitral E to LV E' Septal Ratio 14.9 TR Peak Velocity 165.0 cm/s TR Peak Gradient 10.9 mmHg TV Peak E Velocity 84.0 cm/s Right Atrial Pressure 3.0 mmHg Pulmonary Artery Systolic Pressu 13.9 mmHg RV Acceleration Time 0.1 s FINDINGS Left Ventricle Normal left ventricular size, systolic function and severely increased wall thickness, with no regional wall motion abnormalities. Left ventricular ejection fraction is estimated at 65-70 %. Severe concentric left ventricle hypertrophy. Grade I diastolic dysfunction (abnormal relaxation filling pattern), normal to mildly elevated filling pressures. Right Ventricle Normal right ventricular size and systolic function. Right ventricular systolic pressure 13.9 mmHg. Right Atrium Normal right atrial size. Right atrial pressure estimated at 3 mmHg. Left Atrium Mildly increased left atrial size. Mitral Valve Mildly thickened mitral valve. No mitral valve stenosis. No mitral valve regurgitation. Aortic Valve Structurally normal trileaflet aortic valve. No aortic valve stenosis. No aortic valve regurgitation. Tricuspid Valve Structurally normal tricuspid valve. No tricuspid valve stenosis. Trace tricuspid valve regurgitation. Pulmonic Valve Structurally normal pulmonic valve. No pulmonary valve stenosis. No pulmonary valve regurgitation. Pericardium No pericardial effusion. Aorta Normal size aortic root and proximal ascending aorta. IVC Normal IVC dimension with >50% respiratory change of the inferior vena cava. CONCLUSIONS 1. Normal left ventricular size and systolic function with no regional wall motion abnormalities. Left ventricular ejection fraction is estimated at 65-70 %. Severe concentric left ventricle hypertrophy. Grade I diastolic dysfunction (abnormal relaxation filling pattern), normal to mildly elevated filling pressures. 2. Normal right ventricular size and systolic function. 3. No significant valvular abnormality. 4. No prior similar studies to compare. Pura Paulino MD (Electronically Signed) Final Date: 28 November 2021 16:55 S
[2021-11-28] MEDS: cloNIDine 0.1 mg Tablet PO ×3 (08:38→20:01)
[2021-11-28] MEDS: ipratropium-albuterol 3 mL Neb INHALATION ×3 (08:45→20:00)
--- NOTE | 2021-11-28 10:37 | PC.CHAP ---
Pastoral Care Encounter/Spiritual Assessment Type of Contact [] Declined film processing supervisor visit [] Patient/Family/Request visit [] Outpatient visit [] Follow-up visit [] Physician referral [] Code/Alert [x] Routine visit [] Staff referral [] Actively dying [] Patient sleeping [] Family support [] [] Out of room [] Palliative care [] [] Receiving care in room [] Pre-surgical visit [] Trauma [] Long length of stay [x] ICU visit [x] Other: PT resting well Relational/Emotional Strength [] Patient feels connected with others/family/visitors/staff [] Distress [] Loneliness/isolation [] Abandonment Spirituality of Patient [] Person of Gely [] Attends Pentecostal of their Gely [] Believes in Prayer [] Reads Bible or Religion materials [] There are Spiritual issues to be addressed Child Care Supervisor Interventions [x] Prayer [] Active listening [] Non-anxious presence [] Spiritual/emotional support [] Crisis/trauma care [] Spiritual counseling [] Bereavement support [] Provided bereavement packet [] Provided Bible/devotional materials [] Provided toy/stuffed animal, coloring book to patient or family member [] Provided Communion [] Anointing/[place] [] Salvation [x] Completed spiritual assessment [] Other: Impact on Illness or Injury [] Angry [] Fearful [] Anxious [] Often cries [] Exhaustion [] Unable to work [] Unable to attend zoroastrianism [] Unable to walk/stand [] Unable to read [] Unable to drive [] Unable to eat/drink [] Unable to sleep [] Unable to be with family [] Patient intubated [] Other: Summary Time spent with patient
[2021-11-28] MEDS: hyDRALAzine 50 mg Tablet 100 MG PO ×2 (14:48→20:00)
[2021-11-28] MEDS: hyDRALAzine 50 mg Tablet 75 MG PO ×2 (14:49→20:00)
--- NOTE | 2021-11-28 18:01 | PM.PN ---
Subjective Subjective: Hospital course, labs appreciated. Examination patient lying comfortably in bed. Seen in ICU. Denies any nausea, vomiting, headache. Denies any chest pain or dizziness. States he was on antihypertensives before but stopped taking because he thought it they never worked for him. States he does not have made money to follow-up with primary care providers but is agreeable to follow-up if it can be for cheaper or for free. Agreeable to continue taking medications as an outpatient. Vitals/I&O/Wt Last Vital Signs Temp 98.0 F 11/28/21 16:00 Pulse 67 11/28/21 16:00 Resp 18 11/28/21 16:00 BP 183/81 11/28/21 16:00 Pulse Ox 96 11/28/21 16:00 O2 Del Method 11/28/21 16:00 11/28/21 11/28/21 11/28/21 06:59 14:59 22:59 Intake Total 350 / 350 Output Total 250 / 1125 900 / 900 Balance -250 / -405 -550 / -550 Weight last 48 hrs Weight 94.982 kg Weight 94.982 kg Weight 94.982 kg Physical Exam Narrative: General: Alert oriented x3, patient seen sitting up in bed appearing comfortable at this time. Patient is a little slow to speak. It seems this is his baseline. Answers appropriately, follows all commands. Able to move all 4 extremities. Neuro exam nonfocal. HEENT: Normocephalic, atraumatic, EOMI, breathing normally on room air. Saturating 93%. Cardio: Regular rate rhythm, normal S1-S2, loud heart sounds. Respiratory: Chest clear auscultation bilaterally but diminished throughout. No gross wheezes or rhonchi GI: Abdomen soft, nontender, nondistended, bowel sounds + Extremities: No lower extremity edema, Data : 11/28/21 02:21 11/28/21 02:21 A&P Assessment and plan (1) HTN (hypertension): (2) Malignant hypertensive urgency: (3) Polycythemia: (4) Nicotine dependence: (5) Uncontrolled hypertension: Plan #Hypertensive urgency #Polycythemia most likely secondary to smoking *Nausea vomiting, dizziness most likely secondary to the above Plan for the day: Goal blood pressure around 160/90 mmHg. Currently has been difficult to control and has been ranging from 180s to 200s systolics. Antihypertensives/treatment difficult as patient has financial constraints and will not be able to continue most of his medication as an outpatient. High chances of secondary persistent hypertension. Will try to minimize the number of medications needed as an outpatient. Switch to clonidine 0.1 mg 3 times daily. Increase hydralazine to 75 mg 3 times daily. Continue amlodipine 10 mg oral daily. Cannot use beta-dunia given bradycardia. Given her inability to check labs as an outpatient we will try to avoid PING/ARB's. Check echocardiogram. Case management alerted. Plan for financial assistance application. Patient will be given medication for 3 months on discharge along with counseling to follow-up with 340 be provided as an outpatient. Transfer to [facility] floor. Full code DVT prophylaxis: Heparin subcu cardiac low salt diet Attestations Medical Necessity Statement*: Requires further hospitalization for management of uncontrolled hypertension. Time Spent in Patient Care: Greater than 35 minutes Coding Level of Care Code Acute Certified Substance Abuse Counselor for [facility] Fwd Diagnoses HTN (hypertension) I10 Malignant hypertensive urgency I16.0 Polycythemia D75.1 Nicotine dependence F17.200 Uncontrolled hypertension I10
--- NOTE | 2021-11-28 19:16 | PC.NURSE ---
Bedside report with RACHELL Motta.
--- NOTE | 2021-11-28 19:19 | PC.NURSE ---
Patient educated to not get out of bed without assistance. Patient alert and oriented x4. Patient educated roofing subcontractor light, verbalized understanding, and has call light within reach.
[2021-11-29] VITALS (10 sets, daily range): BP systolic 153–176; BP diastolic 88–95; PULSE 80–97; RESP 16–18; TEMP 36.3–36.7; O2SAT 93–99
[2021-11-29] MEDS: heparin 5,000 unit/mL INJ 1 mL 5000 UNIT SUBCUT (05:15)
[2021-11-29] MEDS: ipratropium-albuterol 3 mL Neb INHALATION (07:34)
--- NOTE | 2021-11-29 10:29 | P.DS_ITS ---
Discharge Providers Date of Admission: 11/26/21 20:25 Date of Discharge: November 29, 2021 Attending Provider at Admission: Ilan Jackson MD Attending Provider at Discharge: Luis Trevino MD Diagnoses at Discharge Discharge Diagnosis (1) HTN (hypertension): Status: Acute (2) Malignant hypertensive urgency: Status: Acute (3) Polycythemia: Status: Inactive (4) Nicotine dependence: Status: Acute (5) Uncontrolled hypertension: Status: Acute Reason for Visit Reason for Visit: N/V Brief History: History as per HPI: Lj Wynn is a 56 year old male with no significant past medical history other than hypertension, not on any medications at home and nicotine dependence/everyday smoker presented to the hospital via EMS.? Patient lives in a local homeless usp.? He felt lightheaded and dizzy and fell because of it.? He also had a little bit of vomiting which he describes that slightly darker in color.? He did not see any gross blood in there.? Otherwise denies any chest pain, shortness of breath, difficulty swallowing, difficulty urinating, pain with urinating, pain radiating to his upper back or shoulder blades.? Denies coughing, shortness of breath, fever, chill, headache, passing out, diarrhea.? Denies illicit drug use.? Patient is an everyday smoker and smokes half a cigarette a day.? He says he used to drink alcohol but not anymore.? He says its been a while since he had his last drink.? He said he did have some nausea vomiting before coming to the hospital but it is no longer present at this time.? Denies marijuana use.? Also goes on to state that he is always had high blood pressure but he does not take any medicines.? 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 He states that earlier this year he was diagnosed with COVID and took steroids.? This was sometime in March. ED course: On arrival blood pressure 269/152, respiratory 16, pulse 82, temperature 97.7, saturating 93% on room air.? Chest x-ray showed no acute findings.? CT head was ordered. Hospital Course Hospital Course Patient was admitted to the ICU for further evaluation management of malignant hypertensive urgency. He was on admission given multiple medications to control blood pressures will continue to remain high and eventually was started on nicardipine drip. Gradually nicardipine drip was weaned and he was transitioned over to oral medications. His blood pressure has been difficult to control even on high doses of 3 medications. His care is complicated by patient's inability to take medications as an outpatient because of financial constraints. His medications were changed as per his financial capabilities so he can continue taking the same medication as an outpatient for long-term. Appointment was made with a primary care provider for patient to follow-up as an outpatient. Patient was counseled in detail to follow-up with primary care provider and to continue taking his medications going forward along with smoking cessation to prevent from ACS/stroke. Medications have been provided to him for 3 months along with financial assistance paperwork. Physical Exam Narrative: General: Alert oriented x3, patient seen sitting up in bed appearing comfortable at this time. Patient is a little slow to speak. It seems this is his baseline. Answers appropriately, follows all commands. Able to move all 4 extremities. Neuro exam nonfocal. HEENT: Normocephalic, atraumatic, EOMI, breathing normally on room air. Saturating 93%. Cardio: Regular rate rhythm, normal S1-S2, loud heart sounds. Respiratory: Chest clear auscultation bilaterally but diminished throughout. No gross wheezes or rhonchi GI: Abdomen soft, nontender, nondistended, bowel sounds + Extremities: No lower extremity edema, Discharge Data Studies Completed and Pending Completed Studies During Hospitalization Category Date Time Status CT head wo con* [id number] Stat Cat Scan 11/26/21 17:48 Completed XR chest 1V portable [id number] Stat Exams 11/26/21 13:10 Completed CV. echo complete* [id number] Routine Ultrasound 11/28/21 08:13 Completed US renal BI* [id number] Routine Ultrasound 11/26/21 18:27 Completed Radiology Impressions Chest X-Ray 11/26/21 13:10 IMPRESSION: No acute findings. Head CT 11/26/21 17:48 IMPRESSION: No acute intracranial abnormality. Renal Ultrasound 11/26/21 18:27 IMPRESSION: 1. Negative for renal obstruction. 2. No convincing sonographic evidence of Urolithiasis. Laboratory Results WBC 9.9 10^3/uL (4.0-10.0) 11/28/21 02:21 RBC 4.50 10^6/uL (4.1-5.3) 10/03/22 02:21 Hgb 13.9 g/dL (11.7-16.6) 11/28/21 02:21 Hct 41.8 % (42.0-52.0) L 11/28/21 02:21 MCV 92.9 fl (80-94) 11/28/21 02:21 MCH 30.9 pg (28.0-34.0) 11/28/21 02:21 MCHC 33.3 g/dL (30.0-36.0) 11/28/21 02:21 RDW 13.0 % (12.1-15.1) 11/28/21 02:21 Plt Count 188 10^3/cmm (130-400) 11/28/21 02:21 MPV 10.7 fL (7.4-10.4) H 11/28/21 02:21 Neut % (Auto) 73.8 % 11/28/21 02:21 Lymph % (Auto) 19.0 % 11/28/21 02:21 [place] % (Auto) 4.9 % 11/28/21 02:21 Eos % (Auto) 1.6 % 11/28/21 02:21 Baso % (Auto) 0.4 % 11/28/21 02:21 Neut # (Auto) 7.31 10^3/uL (1.8-7.7) 11/28/21 02:21 Lymph # (Auto) 1.9 10^3/uL (0.8-4.8) 11/28/21 02:21 [place] # (Auto) 0.5 10^3/uL (0.2-0.9) 11/28/21 02:21 Eos # (Auto) 0.2 10^3/uL (0.0-0.8) 11/28/21 02:21 Baso # (Auto) 0.0 10^3/uL (0.0-0.1) 11/28/21 02:21 Nucleated RBC % (auto) 0 % 11/28/21 02:21 Nucleated RBCs # 0.0 /100WBC 11/28/21 02:21 Sodium 136 mmol/L (136-145) 11/28/21 02:21 Potassium 3.4 mmol/L (3.5-5.1) L 11/28/21 02:21 Chloride 100 mmol/L (98-107) 11/28/21 02:21 Carbon Dioxide 26 mmol/L (22-29) 11/28/21 02:21 Anion Gap 13.4 (5-19) 11/28/21 02:21 BUN 14 mg/dL (6-20) 11/28/21 02:21 Creatinine 1.0 mg/dL (0.7-1.2) 11/28/21 02:21 GFR Calculation 77.6 mL/min (90-130) L 11/28/21 02:21 Glucose 112 mg/dL (65-115) 11/28/21 02:21 Calculated Osmolality 283 mOsm/kg (285-295) L 11/28/21 02:21 Calcium 9.2 mg/dL (8.5-10.5) 11/28/21 02:21 Magnesium 2.2 mg/dL (1.7-2.3) 11/28/21 02:21 Total Bilirubin 0.4 mg/dL (0.15-1.2) 11/27/21 04:42 AST 9 U/L (0-40) 11/27/21 04:42 ALT 6 U/L (0-41) 11/27/21 04:42 Alkaline Phosphatase 100 U/L (40-130) 11/27/21 04:42 Troponin T Baseline 18 ng/L (0-15) H 11/26/21 13:20 Troponin T 120 Minute 17.37 ng/L (0-15) H 11/26/21 15:12 Delta Troponin T -0.63 ABS# (0-10) L 11/26/21 15:12 Troponin T Hi Sens 6Hr 20.26 ng/L (0-15) H 11/26/21 19:00 Troponin T Hi Sens 6Hr Delta 2.26 ng/L (0-12) 11/26/21 19:00 Total Protein 6.5 g/dL (6.6-8.7) L 11/27/21 04:42 Albumin 3.6 g/dL (3.5-5.2) 11/27/21 04:42 Globulin 2.9 g/dL (1.3-4.6) 11/27/21 04:42 Lipase 18 U/L (13-60) 11/26/21 13:20 Urine Color Yellow (Yellow) 11/27/21 14:00 Urine Appearance Clear (CLEAR) 11/27/21 14:00 Urine pH 6.0 (5-7) 11/27/21 14:00 Ur Specific [place] 1.020 (1.005-1.030) 11/27/21 14:00 Urine Protein Trace 11/27/21 14:00 Urine Glucose (UA) Negative (Normal) 11/27/21 14:00 Urine Ketones Trace (Negative) A 11/27/21 14:00 Urine Blood Trace-intact (Negative) A 11/27/21 14:00 Urine Nitrate Negative 11/27/21 14:00 Urine Bilirubin Negative (Negative) 11/27/21 14:00 Urine Urobilinogen 0.2 mg/dL (Negative) 11/27/21 14:00 Ur Leukocyte Esterase Negative (Negative) 11/27/21 14:00 Urine RBC 5-10 /hpf (0-2) H 11/27/21 14:00 Urine WBC None /hpf (0-5) 11/27/21 14:00 Ur Squamous Epith Cells None /hpf (0-5) 11/27/21 14:00 Amorphous Sediment Not Reportable 11/27/21 14:00 Urine Bacteria Trace /hpf (NONE) 11/27/21 14:00 Urine Mucus 2+ /hpf 11/26/21 17:01 Vitals Last Vital Signs Temp 98.1 F 11/29/21 08:05 Pulse 80 11/29/21 08:05 Resp 18 11/29/21 08:05 BP 176/95 11/29/21 08:05 Pulse Ox 98 11/29/21 08:05 O2 Del Method 11/29/21 08:05 Discharge Plan Discharge Patient Disposition: Home Condition: Stable Prescriptions: New amlodipine 10 mg Tablet 10 mg PO DAILY Qty: 90 0RF clonidine HCl 0.2 mg tablet 0.2 mg PO TID 90 Days Qty: 270 0RF hydralazine 100 mg tablet 50 mg PO TID 90 Days Qty: 270 0RF Discharge Orders: Discharge Order (Routine); Ordered 11/29/21 Ordered By: Luis Trevino Referrals: Malik Salinas MD [Physician] - 12/02/21 8:30 am Patient Instructions: Clonidine (By mouth), Hydralazine (By mouth), Amlodipine (By mouth), Hypertension, How to Stop Smoking (DC), Cigarette Smoking and Your Health (GEN), Hypertensive Crisis (DC), Hypertensive Crisis (GEN), Hypertension (DC), Opioid Safety Discharge Attestations Time Spent in Discharge Care*: greater than 30 min Specific Discharge Activities: educating patient, discussing with pcp/other providers, discussing with case management assistant/social workers/dc planners, documenting/other paperwork and evaluating patient/reviewing data Status at Discharge: Cognitive status at discharge: mildly impaired cognition , Behavioral status at discharge: cooperative , Functional status at discharge: independent ambulation , Overall status at discharge: patient is back to baseline Quality Metrics Clinical Quality Measures [ No reported AMI, CVA or VTE this stay] Coding Level of Care Code Acute Chg FW DC note Diagnoses HTN (hypertension) I10 Malignant hypertensive urgency I16.0 Polycythemia D75.1 Nicotine dependence F17.200 Uncontrolled hypertension I10
[2021-11-29] MEDS: hyDRALAzine 50 mg Tablet 75 MG PO ×2 (10:45→15:33)
[2021-11-29] MEDS: hyDRALAzine 50 mg Tablet 100 MG PO ×2 (10:45→15:33)
[2021-11-29] MEDS: amlodipine 10 mg Tablet PO (10:45)
[2021-11-29] MEDS: cloNIDine 0.1 mg Tablet PO ×2 (10:45→15:32)
[2021-11-29] MEDS: pantoprazole DR 40 mg Tablet PO (10:45)
== END 2021-11-29 17:40 | disposition home or self-care (01) | DRG 305 ==
LOC: ER 15:48 → ICU 18:57 → MEDSURG 11-28 14:04
PROVIDERS: Internal Medicine; Admitting Provider Internal Medicine; Emergency Provider Family Medicine; Visit Provider Student in an Organized Health Care Education/Training Program
DX: I16.0 Hypertensive urgency (principal); D75.1 Secondary polycythemia; R42 Dizziness and giddiness; R11.2 Nausea with vomiting, unspecified; R00.1 Bradycardia, unspecified; R39.198 Other difficulties with micturition; R30.9 Painful micturition, unspecified; R31.9 Hematuria, unspecified; F17.210 Nicotine dependence, cigarettes, uncomplicated; Z86.16 Personal history of COVID-19; Z59.01 Sheltered homelessness
CPT/HCPCS: 36415; 70450; 71045; 76770; 80048; 80053; 81001; 83690; 83735; 84484; 85025; 93005; 93306; 94640; 94664; 96365; 96366; 96372; 96375; 99291; J1644; J2405; J3490; J7030

== ENCOUNTER 2021-11-30 15:22 | Emergency (ER) | payer MEDICAID, SELFPAY ==
[2021-11-30 15:31] VITALS: BP 127/80; PULSE 99; RESP 16; TEMP 36.7; O2SAT 95; BMI 31.5
--- NOTE | 2021-11-30 15:34 | W.ED.WEAKNES ---
HPI - Weakness General: Chief complaint: Weakness Stated complaint: WEAKNESS Time Seen by Provider: 11/30/21 15:31 History of Present Illness: Presents via EMS stating he feel[s] like crap . He cannot specify what this means, strong odor of concentrated urine about him, very dry oropharynx recently admitted with HTN urgency states taking all of his medications he is supposed to take. No NVD, no chest pain or SOA, no edema, states generalized weakness, no focal deficit noted. Family member in room now, noted that he was weak, he had been admitted recently and had fallen, went to have stitches removed today and was noted to be hypotensive and sent to ER. Daughter states recent UTI and battled HTN throughout visit, finally got both under control prior to dc now she wonders if he needs strong antihypertensives as they are working too well currently. Will evaluate for acute decline or new pathology, she states she cares for him and would prefer to take him home if able, will complete workup first to determine disposition, she agees. Associated symptoms: Reports confusion; Denies chest pain, headache(s), nausea or vomiting Review of Systems General: Reports: 10 or more systems reviewed and unremarkable except in HPI and below Const: Reports: body aches, fatigue and malaise Eyes: Denies: change in vision or blurry vision ENMT: Reports: dry mouth and halitosis; Denies: throat pain Card: Denies: chest pain, palpitations, edema or swelling of feet/ankles Resp: Denies: dyspnea or wheezing GI: Denies: abdominal pain, nausea, vomiting, diarrhea or constipation : Reports: oliguria; Denies: flank pain Musc: Denies: neck pain, extremity pain or limited range of motion Skin/Breast: Denies: rash or skin swelling Neuro: Reports: dizziness and confusion; Denies: headache(s), numbness in extremities, weakness in extremities, sensory changes, lack of coordination, Slurred speech present or difficulty communicating thoughts PFS ED PFSH: Medical History (Updated 11/30/21 @ 17:30 by Rivka Narvaez DO) COVID-19 Financial difficulty HTN (hypertension) Nicotine dependence Polycythemia Sheltered homelessness Uncontrolled hypertension Surgical History H/O hand surgery Social History Smoking and tobacco status: current every day smoker cigarettes Packs smoked per day: 0.5 Years cigarettes smoked: 40 Alcohol intake: former Former alcohol use details: Quit due to inability to afford alcohol Physical Exam Const: COMMON NORMALS: no acute distress, patient oriented x3, no limitations, alert and well nourished HENMT: COMMON NORMALS: normocephalic and atraumatic HEAD & SCALP: normocephalic and atraumatic MOUTH: other (dry mouth) Eye: COMMON NORMALS: Equal, round and reactive pupils present, EOMs intact bilaterally and conjunctivae normal CONJUNCTIVA: Yes conjunctivae normal PUPIL: Yes Equal, round and reactive pupils present Neck/C-Spine: COMMON NORMALS: full ROM Chest: COMMONS NORMALS: normal inspection of the chest Resp: COMMON NORMALS: normal respiratory effort, No retractions, No use of accessory muscles and clear to auscultation bilaterally EFFORT & INSPECTION: Yes able to speak in complete sentences and Yes symmetric chest movement AUSCULTATION: clear to auscultation bilaterally Cardio: COMMON NORMALS: regular rate and regular rhythm RATE: regular rate RHYTHM: regular rhythm GI: COMMON NORMALS: Normal to inspection, nondistended, normoactive bowel sounds present and non-tender : COMMON NORMALS: Yes no CVA tenderness BLADDER/KIDNEY EXAM: Yes no CVA tenderness Back/Pelvis: COMMON NORMALS: no CVA tenderness, thoracic and lumbar spine normal to inspection, no thoracic nor lumbar tenderness and thoraco-lumbar ROM normal Extremity: COMMON NORMALS: normal to inspection, full ROM, capillary refill normal, no calf tenderness and no pedal edema Neuro: COMMON NORMALS: patient oriented x3, CN's II-XII intact bilaterally, moves all extremities, no focal motor deficits and no sensory deficits noted SENSORIUM/ORIENTATION: Yes alert SPEECH: speech normal GAIT: Yes Normal gait present Psych: COMMON NORMALS: mental status grossly normal and cooperative Skin: COMMON NORMALS: no rashes or lesions noted and no wounds GENERAL SKIN EXAM: no rashes or lesions noted Course ED course: creat elevated, dehydrated, replenished fluids, bp remained stable, discussed with hospitalist, recommends patient ok to be discharged at this time, will order repeat BMP in 3-4 days to go to PCP for re-evaluation. Patient agrees. Return for problems or concerns Vital Signs: Vital signs: Vital Signs Temperature 98.0 F 11/30/21 15:31 Pulse Rate 99 11/30/21 15:31 Respiratory Rate 16 11/30/21 15:31 Blood Pressure 127/80 11/30/21 15:31 Pulse Oximetry 95 11/30/21 15:31 Oxygen Delivery Me thod 11/30/21 15:31 MDM - Weakness Medical Decision Making eval for htn urgency, encephalopathy or other generalized illness or medication side effect Lab Data : 11/30/21 16:17 11/30/21 16:17 Radiology Impressions Chest X-Ray 11/30/21 15:50 IMPRESSION: 1. Cardiomegaly and pulmonary vascular congestion. 2. Bibasilar airspace infiltrates. Laboratory Results WBC 9.5 10^3/uL (4.0-10.0) 11/30/21 16:17 RBC 5.22 10^6/uL (4.1-5.3) 11/30/21 16:17 Hgb 16.2 g/dL (11.7-16.6) 11/30/21 16:17 Hct 48.7 % (42.0-52.0) 11/30/21 16:17 MCV 93.3 fl (80-94) 11/30/21 16:17 MCH 31.0 pg (28.0-34.0) 11/30/21 16:17 MCHC 33.3 g/dL (30.0-36.0) 11/30/21 16:17 RDW 13.5 % (12.1-15.1) 11/30/21 16:17 Plt Count 211 10^3/cmm (130-400) 11/30/21 16:17 MPV 10.1 fL (7.4-10.4) 11/30/21 16:17 Neut % (Auto) 83.9 % 11/30/21 16:17 Lymph % (Auto) 9.3 % 11/30/21 16:17 [place] % (Auto) 5.8 % 11/30/21 16:17 Eos % (Auto) 0.2 % 11/30/21 16:17 Baso % (Auto) 0.5 % 11/30/21 16:17 Neut # (Auto) 7.94 10^3/uL (1.8-7.7) H 11/30/21 16:17 Lymph # (Auto) 0.9 10^3/uL (0.8-4.8) 11/30/21 16:17 [place] # (Auto) 0.6 10^3/uL (0.2-0.9) 11/30/21 16:17 Eos # (Auto) 0.0 10^3/uL (0.0-0.8) 11/30/21 16:17 Baso # (Auto) 0.1 10^3/uL (0.0-0.1) 11/30/21 16:17 Nucleated RBC % (auto) 0 % 11/30/21 16:17 Nucleated RBCs # 0.0 /100WBC 11/30/21 16:17 Sodium 135 mmol/L (136-145) L 11/30/21 16:17 Potassium 3.6 mmol/L (3.5-5.1) 11/30/21 16:17 Chloride 97 mmol/L (98-107) L 11/30/21 16:17 Carbon Dioxide 23 mmol/L (22-29) 11/30/21 16:17 Anion Gap 18.6 (5-19) 11/30/21 16:17 BUN 28 mg/dL (6-20) H 11/30/21 16:17 Creatinine 1.8 mg/dL (0.7-1.2) H 11/30/21 16:17 GFR Calculation 39.4 mL/min (90-130) L 11/30/21 16:17 Glucose 100 mg/dL (65-115) 11/30/21 16:17 Calculated Osmolality 286 mOsm/kg (285-295) 11/30/21 16:17 Calcium 10.0 mg/dL (8.5-10.5) 11/30/21 16:17 Total Bilirubin 0.9 mg/dL (0.15-1.2) 11/30/21 16:17 AST 22 U/L (0-40) 11/30/21 16:17 ALT 16 U/L (0-41) 11/30/21 16:17 Alkaline Phosphatase 97 U/L (40-130) 11/30/21 16:17 Troponin T Baseline 85 ng/L (0-15) H 11/30/21 16:17 Total Protein 7.2 g/dL (6.6-8.7) 11/30/21 16:17 Albumin 4.0 g/dL (3.5-5.2) 11/30/21 16:17 Globulin 3.2 g/dL (1.3-4.6) 11/30/21 16:17 Urine Color Dark yellow (Yellow) 11/30/21 16:35 Urine Appearance Clear (CLEAR) 11/30/21 16:35 Urine pH 5 (5-7) 11/30/21 16:35 Ur Specific [place] 1.015 (1.005-1.030) 11/30/21 16:35 Urine Protein Trace (Negative) 11/30/21 16:35 Urine Glucose (UA) Norm (Normal) 11/30/21 16:35 Urine Ketones Negative (Negative) 11/30/21 16:35 Urine Blood Neg (Negative) 11/30/21 16:35 Urine Nitrate Negative (Negative) 11/30/21 16:35 Urine Bilirubin Neg (Negative) 11/30/21 16:35 Urine Urobilinogen Norm mg/dL (Negative) 11/30/21 16:35 Ur Leukocyte Esterase Negative (Negative) 11/30/21 16:35 Urine RBC None /hpf (0-2) 11/30/21 16:35 Urine WBC None /hpf (0-5) 11/30/21 16:35 Ur Squamous Epith Cells None /hpf (0-5) 11/30/21 16:35 Amorphous Sediment Trace /hpf 11/30/21 16:35 Urine Bacteria Trace /hpf (NONE) 11/30/21 16:35 Hyaline Casts 5-10 /lpf H 11/30/21 16:35 Urine Mucus 1+ /hpf 11/30/21 16:35 Discharge Plan Discharge Patient Disposition: Home Clinical Impression: Dehydration Condition: Stable Prescriptions: No Action amlodipine 10 mg Tablet 10 mg PO DAILY Qty: 90 0RF clonidine HCl 0.2 mg tablet 0.2 mg PO TID 90 Days Qty: 270 0RF hydralazine 100 mg tablet 50 mg PO TID 90 Days Qty: 270 0RF Discharge Orders: Discharge ED (Routine); Ordered 11/30/21 Ordered By: Rivka Narvaez Other Ambulatory Orders: Basic Metabolic Panel (Routine) Timeframe: 3 Days Facility: [facility] - Location: Lab - Main Lab Ordered By: Rivka Narvaez Discharge Diet: As Directed Discharge Activity: Resume usual activity Patient Instructions: Dehydration - Adult, Acute Kidney Injury (DC) Coding Level of Care Code ED Supervisor [employer] for Chg Fwd History Comprehensive Exam Comprehensive Medical Decision Making Moderate Complexity
--- NOTE | 2021-11-30 15:50 | XRR_ITS ---
PROCEDURE INFORMATION: Exam: XR Chest Exam date and time: 11/30/2021 4:09 PM Age: 56 years old Clinical indication: Other: Weakness; Prior surgery; Surgery type: Colostomy; Additional info: Weak TECHNIQUE: Imaging protocol: Radiologic exam of the chest. Views: 1 view. COMPARISON: CR (CHEST, ) 11/26/2021 1:24 PM FINDINGS: Lungs: Bibasilar airspace infiltrates. Pleural spaces: Unremarkable. No pleural effusion. No pneumothorax. Heart/Mediastinum: Cardiomegaly and pulmonary vascular congestion. Bones/joints: Unremarkable. XR/XR chest 1V portable [id number] IMPRESSION: 1. Cardiomegaly and pulmonary vascular congestion. 2. Bibasilar airspace infiltrates.
--- NOTE | 2021-11-30 15:51 | ECG_ITS ---
[facility] Test Date: 2021-11-30 Pat Name: Lj Wynn Department: Room: Gender: Male Hanger Off: : 1965 Requested By: Rivka Narvaez Order Number: [id number] Roopa MD: Tray Valdivia M.D. Measurements Intervals [place] Rate: 80 P: 138 WV: 165 QRS: 178 QRSD: 106 T: 1 QT: 376 QTc: 434 Interpretive Statements SINUS RHYTHM Nonspecific T wave changes ARM LEADS REVERSED [INVERTED P AND QRS IN I] Compared to ECG 11/30/2021 16:06:48 T wave changes persist Electronically Signed On 11-30-2021 20:55:56 CDT by Tray Valdivia M.D. [id number]
--- NOTE | 2021-11-30 16:06 | ECG_ITS ---
[facility] Test Date: 2021-11-30 Pat Name: Lj Wynn Department: Room: Gender: Male Tester Compressed Gases: : 1965 Requested By: Rivka Narvaez Order Number: [id number] Roopa MD: Tray Valdivia M.D. Measurements Intervals [place] Rate: 91 P: 40 DE: 160 QRS: 10 QRSD: 101 T: 79 QT: 340 QTc: 419 Interpretive Statements SINUS RHYTHM WITH OCCASIONAL SUPRAVENTRICULAR PREMATURE COMPLEXES ST DEVIATION AND MODERATE T-WAVE ABNORMALITY, CONSIDER LATERAL ISCHEMIA [-0.1+ mV T-WAVE IN I/aVL/V5/V6] Compared to ECG 11/26/2021 18:55:26 Possible ischemia now present Incomplete right bundle-branch block no longer present T-wave abnormality still present Electronically Signed On 11-30-2021 20:55:23 CDT by Tray Valdivia M.D. [id number]
[2021-11-30] MEDS: sodium chloride 0.9% 500 ML IV (16:26)
[2021-11-30 16:35] LABS: Basophils # 0.1 10^3/uL (0.0-0.1); Basophils % 0.5 %; Eosinophils % 0.2 %; Hematocrit 48.7 % (42.0-52.0); Hemoglobin 16.2 g/dL (11.7-16.6); Lymphocytes # 0.9 10^3/uL (0.8-4.8); Lymphocytes % 9.3 %; Mean Corpuscular HGB Conc 33.3 g/dL (30.0-36.0); Mean Corpuscular Volume 93.3 fl (80-94); Mean Platelet Volume 10.1 fL (7.4-10.4); Monocytes # 0.6 10^3/uL (0.2-0.9); Monocytes % 5.8 %; Neutrophils # 7.94 10^3/uL (1.8-7.7); Neutrophils % 83.9 %; Nucleated Red Blood Cells % 0 %; Platelet Count 211 10^3/cmm (130-400); Red Blood Count 5.22 10^6/uL (4.1-5.3); Red Cell Distribution Width 13.5 % (12.1-15.1); White Blood Count 9.5 10^3/uL (4.0-10.0)
[2021-11-30 16:56] LABS: Alanine Aminotransferase 16 U/L (0-41); Alkaline Phosphatase 97 U/L (40-130); Anion Gap 18.6 (5-19); Aspartate Amino Transferase 22 U/L (0-40); Blood Urea Nitrogen 28 mg/dL (6-20); Carbon Dioxide 23 mmol/L (22-29); Chloride 97 mmol/L (98-107); Globulin 3.2 g/dL (1.3-4.6); Glomerular Filtration Rate 39.4 mL/min (90-130); Glucose 100 mg/dL (65-115); Osmolality Calculated 286 mOsm/kg (285-295); Potassium 3.6 mmol/L (3.5-5.1); Sodium 135 mmol/L (136-145); Total Bilirubin 0.9 mg/dL (0.15-1.2); Total Protein 7.2 g/dL (6.6-8.7)
[2021-11-30 17:09] LABS: Troponin(5th) Baseline 85 ng/L (0-15)
[2021-11-30 17:16] LABS: Add Urine Microscopic? YES; Bacteria Urine TRACE /hpf; Bilirubin Urine Neg (Negative); Blood Urine Neg (Negative); Glucose Urine UA Norm (Normal); Ketones Urine Negative (Negative); Leukocyte Esterase Urine Negative (Negative); Mucus Urine 1+ /hpf; Nitrate Urine Negative (Negative); Protein Urine Trace (Negative); Specific Gravity, Urine 1.015 (1.005-1.030); Urine Appearance Clear (CLEAR); Urine Color Dark Yellow (Yellow); Urobilinogen Urine Norm (Negative); pH Urine 5 (5-7)
[2021-11-30 17:17] LABS: Amorphous Sediment Urine TRACE /hpf
[2021-11-30 17:18] LABS: Add Urine Culture? No
[2021-11-30 18:18] VITALS: BP 166/98; PULSE 89; RESP 16; O2SAT 92
== END 2021-11-30 18:20 | disposition home or self-care (01) ==
PROVIDERS: Emergency Provider Emergency Medicine
DX: E86.0 Dehydration (principal); I10 Essential (primary) hypertension; F17.210 Nicotine dependence, cigarettes, uncomplicated
CPT/HCPCS: 36415; 71045; 80053; 81001; 84484; 85025; 87086; 93005; 96360; 96361; 99285; J7040

== ENCOUNTER 2021-12-01 12:53 | Emergency (ER) | payer MEDICAID, SELFPAY ==
[2021-12-01 13:00] VITALS: BP 206/109; PULSE 95; RESP 16; TEMP 36.4; O2SAT 98; BMI 34.4
[2021-12-01] MEDS: cloNIDine 0.1 mg Tablet 0.2 MG PO (14:59)
[2021-12-01 15:49] VITALS: BP 192/101; PULSE 83; RESP 17; O2SAT 95
--- NOTE | 2021-12-01 15:55 | ED_ITS ---
Documented by User: MYA Murry 12/01/21 19:53 HPI - Back Pain/Injury General: Chief Complaint: Back Pain/Injury Stated Complaint: back pain Time Seen by Provider: 12/01/21 14:33 History of Present Illness: Patient is in today for complaints of low back pain. He reports that for approximately a week he has been having low back pain. He reports that it started hurting when he was vomiting and he was really big. He reports that nothing seems to be making this better. It is a spasming grabbing type pain. He denies that it radiates to any other part of his body. He denies any saddle anesthesia, loss of bowel or bladder continence. He denies fever, chills, nausea, vomiting. He reports that he was a little bit dizzy today but he had not taken any of his blood pressure medications. He reported to the triage nurse that he has been prescribed amlodipine clonidine and hydralazine for high blood pressure however he had not been taking those medications he had never started them. He told me during the exam that he does not normally take them but he did not take them today. Associated symptoms: Deny abdominal pain, chills, dysuria, fever(s), nausea or vomiting Review of Systems Const: Denies: fever(s) or chills Card: Denies: chest pain or palpitations Resp: Denies: dyspnea GI: Denies: abdominal pain, nausea or vomiting : Denies: flank pain, difficulty urinating or dysuria Musc: Reports: back pain [facility] ED PFSH: Medical History COVID-19 Financial difficulty HTN (hypertension) Nicotine dependence Polycythemia Sheltered homelessness Uncontrolled hypertension Surgical History H/O hand surgery Social History Smoking and tobacco status: current every day smoker cigarettes Packs smoked per day: 0.5 Years cigarettes smoked: 40 Alcohol intake: former Former alcohol use details: Quit due to inability to afford alcohol Physical Exam Const: COMMON NORMALS: no acute distress, patient oriented x3 and alert Resp: COMMON NORMALS: normal respiratory effort, No use of accessory muscles and clear to auscultation bilaterally AUSCULTATION: clear to auscultation bilaterally Cardio: COMMON NORMALS: regular rate, regular rhythm, S1 normal heart sound present, S2 normal heart sound present and No murmurs present (Cardio) RATE: regular rate RHYTHM: regular rhythm HEART SOUNDS: S1 normal heart sound present and S2 normal heart sound present Back/Pelvis: OTHER: There is some lumbar paraspinal muscle tenderness bilateral. No obvious bony deformity or soft tissue deformity appreciated. No point tenderness to the lumbar spine. No step-offs appreciated. No CVA tenderness appreciated. Patient has stiff movement. He does not want to bend over to sit down. Palpation of the lumbar paraspinal musculature reproduces pain complaint Neuro: COMMON NORMALS: patient oriented x3 SENSORIUM/ORIENTATION: Yes alert Course Vital Signs: Vital signs: Vital Signs Temperature 97.6 F 12/01/21 13:00 Pulse Rate 81 12/01/21 18:27 Respiratory Rate 17 12/01/21 18:27 Blood Pressure 174/92 12/01/21 18:27 Pulse Oximetry 97 12/01/21 18:27 Oxygen Delivery Me thod 12/01/21 17:46 MDM - Back Pain/Injury Medical Decision Making This is a 56-year-old male patient who is in for acute acute low back pain. He reports has been going on for approximately a week after he was vomiting. He has tried Tylenol at home with no success. Patient has recently been admitted to the hospital for hypertension and then seen afterwards for dehydration. Initially patient told the triage nurse that he has not filled or been taking his antihypertensive medications. Blood pressure was greater than 200 systolic over 100 diastolic on arrival. He told this provider at bedside that he has been taking his medications as prescribed but did not take them today. Those medications were administered to him as his blood pressure was very elevated. His blood pressure started coming down patient reports that he is not having any dizziness. He never had any associated chest pain or shortness of breath. Given his recent dehydration and elevated creatinine I did not give anti- inflammatory today I did provide patient with lidocaine patch, 1 dose of morphine IM, 1 baclofen muscle relaxer. We will plan to discharge patient home with baclofen every 8 hours as needed for muscle spasming. Follow-up with primary care return to the ER for any new or worsening symptoms.. Discharge Plan Discharge Patient Disposition: Home Clinical Impression: Strain of lumbar region, Uncontrolled hypertension Condition: Stable Prescriptions: New baclofen 10 mg tablet 10 mg PO Q8H PRN (Reason: muscle spasm) Qty: 9 0RF No Action amlodipine 10 mg Tablet 10 mg PO DAILY Qty: 90 0RF clonidine HCl 0.2 mg tablet 0.2 mg PO TID 90 Days Qty: 270 0RF hydralazine 100 mg tablet 50 mg PO TID 90 Days Qty: 270 0RF Discharge Orders: Discharge ED (Routine); Ordered 12/01/21 Ordered By: Rivka Garcia Discharge Diet: Usual diet Discharge Activity: Increase activity as tolerated Activity Restrictions/Additional Instructions: No lifting x3 days. Use warm moist compresses to low back. Tylenol as needed for pain. Use baclofen every 8 hours as needed for pain. Do not drive or take any other medication that makes you sleepy while taking this medication. Follow-up with your primary care provider. Make sure that you are taking your antihypertensive/blood pressure medications. Return to the ER for any new or worsening symptoms. Coding Level of Care Code ED Configuration Technician for Chg Fwd Exam Expanded Problem Focused Documented by User: Gregory Lazcano DO 12/02/21 05:47 HPI - Back Pain/Injury General: Chief Complaint: Back Pain/Injury Stated Complaint: back pain Time Seen by Provider: 12/01/21 14:33 PFSH ED PFSH: Medical History COVID-19 Financial difficulty HTN (hypertension) Nicotine dependence Polycythemia Sheltered homelessness Uncontrolled hypertension Surgical History H/O hand surgery Social History Smoking and tobacco status: current every day smoker cigarettes Packs smoked per day: 0.5 Years cigarettes smoked: 40 Alcohol intake: former Former alcohol use details: Quit due to inability to afford alcohol Course Vital Signs: Vital signs: Vital Signs Temperature 97.6 F 12/01/21 13:00 Pulse Rate 81 12/01/21 18:27 Respiratory Rate 17 12/01/21 18:27 Blood Pressure 174/92 12/01/21 18:27 Pulse Oximetry 97 12/01/21 18:27 Oxygen Delivery Me thod 12/01/21 17:46 MDM - Back Pain/Injury Medical Decision Making This is a 56-year-old male patient who is in for acute acute low back pain. He reports has been going on for approximately a week after he was vomiting. He has tried Tylenol at home with no success. Patient has recently been admitted to the hospital for hypertension and then seen afterwards for dehydration. Initially patient told the triage nurse that he has not filled or been taking his antihypertensive medications. Blood pressure was greater than 200 systolic over 100 diastolic on arrival. He told this provider at bedside that he has been taking his medications as prescribed but did not take them today. Those medications were administered to him as his blood pressure was very elevated. His blood pressure started coming down patient reports that he is not having any dizziness. He never had any associated chest pain or shortness of breath. Given his recent dehydration and elevated creatinine I did not give anti- inflammatory today I did provide patient with lidocaine patch, 1 dose of morphine IM, 1 baclofen muscle relaxer. We will plan to discharge patient home with baclofen every 8 hours as needed for muscle spasming. Follow-up with primary care return to the ER for any new or worsening symptoms.. Chart reviewed and patient discussed with midlevel. Agree with assessment and plan. Discharge Plan Discharge Patient Disposition: Home Clinical Impression: Strain of lumbar region, Uncontrolled hypertension Condition: Stable Prescriptions: New baclofen 10 mg tablet 10 mg PO Q8H PRN (Reason: muscle spasm) Qty: 9 0RF No Action amlodipine 10 mg Tablet 10 mg PO DAILY Qty: 90 0RF clonidine HCl 0.2 mg tablet 0.2 mg PO TID 90 Days Qty: 270 0RF hydralazine 100 mg tablet 50 mg PO TID 90 Days Qty: 270 0RF Discharge Orders: Discharge ED (Routine); Ordered 12/01/21 Ordered By: Rivka Garcia Discharge Diet: Usual diet Discharge Activity: Increase activity as tolerated Activity Restrictions/Additional Instructions: No lifting x3 days. Use warm moist compresses to low back. Tylenol as needed for pain. Use baclofen every 8 hours as needed for pain. Do not drive or take any other medication that makes you sleepy while taking this medication. Follow-up with your primary care provider. Make sure that you are taking your antihypertensive/blood pressure medications. Return to the ER for any new or worsening symptoms. Coding Level of Care Code ED Configuration Technician for Meghann Fwd Exam Expanded Problem Focused
[2021-12-01] MEDS: hyDRALAzine 25 mg Tablet 50 MG PO (16:09)
[2021-12-01] MEDS: baclofen 10 mg Tablet PO (16:09)
[2021-12-01] MEDS: amlodipine 10 mg Tablet PO (16:09)
[2021-12-01 16:37] VITALS: BP 177/105; PULSE 79; RESP 18; O2SAT 98
[2021-12-01] MEDS: acetaminophen 500 mg Tablet 1000 MG PO (17:44)
[2021-12-01] MEDS: lidocaine 5% Patch 1 PATCH TOPICAL (17:44)
[2021-12-01 17:46] VITALS: BP 183/96; PULSE 84; RESP 17; O2SAT 97
[2021-12-01 18:10] VITALS: RESP 17
[2021-12-01] MEDS: morphine 4 mg/mL SDV 1 mL IM (18:10)
[2021-12-01 18:27] VITALS: BP 174/92; PULSE 81; RESP 17; O2SAT 97
== END 2021-12-01 18:29 | disposition home or self-care (01) ==
PROVIDERS: Emergency Provider Nurse Practitioner Family
DX: S39.012A Strain of muscle, fascia and tendon of lower back, initial encounter (principal); I10 Essential (primary) hypertension; F17.210 Nicotine dependence, cigarettes, uncomplicated; X58.XXXA Exposure to other specified factors, initial encounter
CPT/HCPCS: 96372; 99284; J2270

== ENCOUNTER 2021-12-02 16:28 | Emergency (ER) | payer MEDICAID, SELFPAY ==
--- NOTE | 2021-12-02 16:29 | ED_ITS ---
HPI - General Adult General: Chief complaint: Psychiatric Symptoms Stated complaint: BACK PAIN/ SI Time Seen by Provider: 12/02/21 16:29 History of Present Illness: Patient is a 56-year-old male with a history of chronic back pain high blood pressure presents emergency room for complaints of back pain after episode of fall. Patient was recently seen on 12/01/2021 for concerns of back pain. At that point time, patient was seen in the emergency room twice. Discharged home. Since discharge from home, patient reports that his back pain is now 10 out of 10. Earlier today, patient was in the bathroom when he slipped and fell onto his back. Patient denies hitting his head or LOC. With back pain reaggravated and now patient comes into the emergency room for worsening complaints of pain. Patient has a left lateral abdominal bruise. Patient has no focal complaints abdominal pain, leg pain, arm pain or chest pain. Patient denies any other injuries from the fall. Patient denies any significant bleeding. Patient has no nausea/vomiting, fever/chill, chest pain, shortness of breath, abdominal pain, dysuria/hematuria/polyuria, diarrhea/melena/hematochezia. He tells me that because of the significance of pain, patient is feeling depressed and wants to hurt himself. Patient tells me that if we can relieve the pain then he is no longer suicidal. Patient denies any auditory hallucination or visual hallucination. Patient denies any homicidal ideation. Onset:earlier today Duration:ongoing Location:home Severity:moderate Associated symptoms: Deny chest pain, dyspnea, nausea, palpitations or vomiting Review of Systems Const: Denies: fever(s) or chills Eyes: Denies: change in vision ENMT: Denies: mouth pain Card: Denies: chest pain or palpitations Resp: Denies: dyspnea or non-productive cough GI: Denies: abdominal pain, nausea, vomiting or diarrhea : Denies: dysuria Musc: Reports: back pain (+lower back pain); Denies: extremity pain Skin/Breast: Reports: new lesions (+L lateral flank bruise) Neuro: Denies: weakness in extremities Psych: Reports: other (Normal mood) Abran/Lymph: Denies: easy bruising PFSH ED PFSH: Medical History COVID-19 Diastolic heart failure due to valvular disease Financial difficulty HTN (hypertension) Nicotine dependence Polycythemia Sheltered homelessness Uncontrolled hypertension Surgical History H/O hand surgery Family History Father Hypertension Other Hyperlipidemia Denies family history of Diabetes CAD (coronary artery disease) Clotting disorder Dementia Chronic kidney disease (CKD) Anesthesia complication Bleeding disorder Lung disease Cancer Stroke Social History Smoking and tobacco status: current every day smoker (0.5ppd) cigarettes Packs smoked per day: 0.5 Years cigarettes smoked: 40 [ Other cigarette details: 05 PPD since 8yrs old. 24PY. longest time quit for was 6 months.] Alcohol intake: former Former alcohol use details: Quit due to inability to afford alcohol Desire information about alcohol rehabilitation?: No Counseling given: No Desire information about substance/drug rehabilitation?: No Counseling given: No Adopted: No Caregiver/support person: No Lives independently: No service: No Current occupational status: unemployed Current gender identity: Male Special walter needs: No Physical Exam Const: COMMON NORMALS: alert HENMT: COMMON NORMALS: atraumatic HEAD & SCALP: atraumatic MOUTH: moist mucous membranes not abnormal Eye: COMMON NORMALS: EOMs intact bilaterally and conjunctivae normal CONJUNCTIVA: Yes conjunctivae normal Neck/C-Spine: COMMON NORMALS: full ROM and supple Resp: COMMON NORMALS: normal respiratory effort and clear to auscultation bilaterally AUSCULTATION: clear to auscultation bilaterally Cardio: COMMON NORMALS: regular rate RATE: regular rate GI: COMMON NORMALS: Soft to palpation and non-tender PALPATION: Yes Soft to palpation OTHER: No focal TTP. NO guarding rebound, guarding, rigidity. No CVA tenderness to percussion. Neg Parker/Neg McBurney's point tenderness, no suprabupic tenderness to palpation. : OTHER: No saddle anesthesia Back/Pelvis: OTHER: +Paraspinal L4-L5 tenderness to palpation, no midline tenderness to palpation Extremity: COMMON NORMALS: full ROM OTHER: 5/5 strengths and sensations in the lower extremities Neuro: SENSORIUM/ORIENTATION: Yes alert MOTOR EXAM: No Abnormal motor strength present and Other motor observations present (no focal motor deficits) Psych: COMMON NORMALS: speech normal SPEECH: Yes normal speech MOOD & AFFECT: Yes euthymic mood Course Vital Signs: Vital signs: Vital Signs Temperature 97.4 F L 12/02/21 16:31 Pulse Rate 84 12/02/21 18:45 Respiratory Rate 17 12/02/21 18:45 Blood Pressure 166/87 12/02/21 18:45 Pulse Oximetry 99 12/02/21 18:45 Oxygen Delivery Me thod 12/02/21 18:45 MDM - General Adult Medical Decision Making Patient is a 56-year-old male with a history of chronic back pain high blood pressure presents emergency room for complaints of back pain after episode of fall. On exam, patient is hemodynamically stable. Patient has mild paraspinal L3-L4 tenderness palpation. Patient has no change in strength or saddle anesthesia. Imaging studies negative for any acute trauma. Patient received lidocaine patch, Tylenol and IM morphine with improvement in pain. On CT scan, patient was found to have an L1 vertebral fracture with also 50% height and some retropulsion. Case was discussed with Dr. Alexander who reviewed the images and recommended TLSO brace with close follow-up. Patient received pain medicine, TLSO brace and is in crutches. Patient able to ambulate without difficulty. I have given patient follow up with our case management coordinator to be seen by our outpatient by Dr. Alexander for L1 compression fracture. Patient aware of a call from our case management coordinator to schedule for appointment(s) and verbalizes understanding of the importance of following up. I have given patient follow up with our case management coordinator to be seen by our out patient [facility] for depression due to back pain. Patient aware of a call from our case management coordinator to schedule for appointment(s) and verbalizes understanding of the importance of following up. Rx: Percocet lidocaine patch, and menthol PRN pain Disposition: Discharge. Patient counseled regarding diagnostic impression, treatment plan. Patient given ED strict return precautions to return for continuation, worsening, or development of new symptoms. Instructed to f/u w/ PCP regarding symptoms today. Patient verbalized understanding. Lab Data : 12/02/21 18:50 12/02/21 18:50 Radiology Impressions Lumbar Spine CT 12/02/21 17:26 IMPRESSION: 1. L1 vertebral body compression fracture with at least 50% loss of height with some retropulsion of bony fragments resulting in mild spinal canal narrowing. 2. L2-L3 broad-based disc bulge resulting in [id number] bilateral foraminal narrowing. 3. L4-L5 broad-based disc bulge with yley-ze-qeadajao spinal canal and bilateral foraminal narrowing. 4. L4-L5 broad-based disc bulge with moderate spinal canal and bilateral foraminal narrowing. 5. L5/S1 broad-based disc bulge with mild spinal canal and moderate bilateral foraminal narrowing. 6. Diverticulosis without diverticulitis. Laboratory Results WBC 11.6 10^3/uL (4.0-10.0) H 12/02/21 18:50 RBC 4.54 10^6/uL (4.1-5.3) 12/02/21 18:50 Hgb 14.1 g/dL (11.7-16.6) 12/02/21 18:50 Hct 42.9 % (42.0-52.0) 12/02/21 18:50 MCV 94.5 fl (80-94) H 12/02/21 18:50 MCH 31.1 pg (28.0-34.0) 12/02/21 18:50 MCHC 32.9 g/dL (30.0-36.0) 12/02/21 18:50 RDW 13.1 % (12.1-15.1) 12/02/21 18:50 Plt Count 198 10^3/cmm (130-400) 12/02/21 18:50 MPV 10.4 fL (7.4-10.4) 12/02/21 18:50 Neut % (Auto) 88.6 % 12/02/21 18:50 Lymph % (Auto) 5.9 % 12/02/21 18:50 [place] % (Auto) 4.7 % 12/02/21 18:50 Eos % (Auto) 0.1 % 12/02/21 18:50 Baso % (Auto) 0.3 % 12/02/21 18:50 Neut # (Auto) 10.30 10^3/uL (1.8-7.7) H 12/02/21 18:50 Lymph # (Auto) 0.7 10^3/uL (0.8-4.8) L 12/02/21 18:50 [place] # (Auto) 0.6 10^3/uL (0.2-0.9) 12/02/21 18:50 Eos # (Auto) 0.0 10^3/uL (0.0-0.8) 12/02/21 18:50 Baso # (Auto) 0.0 10^3/uL (0.0-0.1) 12/02/21 18:50 Nucleated RBC % (auto) 0 % 12/02/21 18:50 Nucleated RBCs # 0.0 /100WBC 12/02/21 18:50 Sodium 135 mmol/L (136-145) L 12/02/21 18:50 Potassium 4.2 mmol/L (3.5-5.1) 12/02/21 18:50 Chloride 97 mmol/L (98-107) L 12/02/21 18:50 Carbon Dioxide 23 mmol/L (22-29) 12/02/21 18:50 Anion Gap 19.2 (5-19) H 12/02/21 18:50 BUN 30 mg/dL (6-20) H 12/02/21 18:50 Creatinine 1.2 mg/dL (0.7-1.2) 12/02/21 18:50 GFR Calculation 62.9 mL/min (90-130) L 12/02/21 18:50 Glucose 93 mg/dL (65-115) 12/02/21 18:50 Calculated Osmolality 286 mOsm/kg (285-295) 12/02/21 18:50 Calcium 9.3 mg/dL (8.5-10.5) 12/02/21 18:50 Imaging Data Other Imaging: Radiologist's impression: [address] [place] [address] CT Scan Report Signed Patient: Lj Wynn Unit #: [id number] : 1965 Age/Sex: 56 / M ADM Date: 12/02/21 Loc: ER Room/Bed: Attending Dr: Ordering Provider/Ordering MD: Eliana Painting MD Date of Service: 12/02/21 Procedure(s): CT lumbar spine wo con* [id number] Accession Number(s): [id number] Report Number: [id number] PROCEDURE INFORMATION: Exam: CT Lumbar Spine Without Contrast Exam date and time: 12/02/2021 5:39 PM Age: 56 years old Clinical indication: Low back pain TECHNIQUE: Imaging protocol: Computed tomography of the lumbar spine without contrast. Radiation optimization: All CT scans at this facility use at least one of these dose optimization techniques: automated exposure control; mA and/or kV adjustment per patient size (includes targeted exams where dose is matched to clinical indication); or iterative reconstruction. COMPARISON: US renal BI* [id number] 11/26/2021 6:33 PM RADIATION DOSE METRICS: Total DLP (mGy-cm): 1004.99 FINDINGS: Bones/joints: L1 vertebral body compression fracture with at least 50% loss of height with some retropulsion of bony fragments resulting in mild spinal canal narrowing. L1-L2: No significant disc protrusion. No severe spinal canal stenosis. No significant neural foraminal narrowing. L2-L3: L2-L3 broad-based disc bulge resulting in ybae-vy-qorvywma bilateral foraminal narrowing. L3-L4: No significant disc protrusion. No severe spinal canal stenosis. No significant neural foraminal narrowing. L4-L5: L4-L5 broad-based disc bulge with aleu-jk-jccwnqbd spinal canal and bilateral foraminal narrowing. L4-L5 broad-based disc bulge with moderate spinal canal and bilateral foraminal narrowing. L5-S1: L5/S1 broad-based disc bulge with mild spinal canal and moderate bilateral foraminal narrowing. Soft tissues:? Diverticulosis without diverticulitis. CT/CT lumbar spine wo con* [id number] IMPRESSION: 1. L1 vertebral body compression fracture with at least 50% loss of height with some retropulsion of bony fragments resulting in mild spinal canal narrowing. 2. L2-L3 broad-based disc bulge resulting in gwoc-zc-ktbaowut bilateral foraminal narrowing. 3. L4-L5 broad-based disc bulge with lbsz-nl-cigegtpm spinal canal and bilateral foraminal narrowing. 4. L4-L5 broad-based disc bulge with moderate spinal canal and bilateral foraminal narrowing. 5. L5/S1 broad-based disc bulge with mild spinal canal and moderate bilateral foraminal narrowing. 6. Diverticulosis without diverticulitis. ? Dictated By: Joshua Tracy MD Signed By: Joshua Tracy MD Signed Date/Time: 12/02/21 386 DD/ 1739 Discharge Plan Discharge Patient Disposition: Home Clinical Impression: Back pain, L1 vertebral fracture Condition: Stable Prescriptions: New lidocaine 5 % adhesive patch,medicated 1 patch topical DAILY PRN (Reason: pain) 30 Days Qty: 30 0RF Rx Instructions: leave on most painful area for up to 12 hrs orphenadrine citrate 100 mg tablet extended release 100 mg PO BID PRN (Reason: pain) 10 Days Qty: 20 0RF Biofreeze (menthol) 5 % gel 1 ea topical BID PRN (Reason: pain) 10 Days Qty: 1 0RF Percocet 5-325 mg tablet 1 tab PO Q8H PRN (Reason: pain) Qty: 9 0RF No Action baclofen 10 mg tablet 10 mg PO Q8H PRN (Reason: muscle spasm) Qty: 9 0RF amlodipine 10 mg Tablet 10 mg PO DAILY Qty: 90 0RF clonidine HCl 0.2 mg tablet 0.2 mg PO TID 90 Days Qty: 270 0RF hydralazine 100 mg tablet 50 mg PO TID 90 Days Qty: 270 0RF Discharge Orders: Discharge ED (Routine); Ordered 12/02/21 Ordered By: Eliana Painting Referrals: Malik Salinas MD [Primary Care Provider] - Discharge Diet: Advance as tolerated Discharge Activity: Increase activity as tolerated Patient Instructions: Back Pain (ED), Pain Management Activity Restrictions/Additional Instructions: You need to wear your brace AT ALL TIMES. Come back to the emergency have any significant back pain, numbness in your legs, difficulty walking, difficulty controlling your bowel or bladder as these may be signs that your back fracture is getting worse. Our case management coordinator will have you follow-up with Dr. Alexander in the next few days for back pain and fracture. You would be expected to have a phone call with our case management coordinator who will put you on the schedule. You can expect a call from us in the next 2-3 days. If you don't hear from us, call us back in the emergency room at [phone]. Our case management coordinator will have you follow-up with [facility] in the next few days for any depression associated with your back pain. You would be expected to have a phone call with our case management coordinator who will put you on the schedule. You can expect a call from us in the next 2-3 days. If you don't hear from us, call us back in the emergency room at [phone]. Please come back to the emergency room if you need help, have any hallucinations, or you have any depression or have thoughts about hurting yourself or other people. Please come back to the emergency room to have worsening back pain, if have any problem with urination and bowel movementm if you have any weakness in the legs, numbness in the legs, or if you have any new or concerning complaints. Coding Level of Care Code ED Client Care Consultant for Meghann Fwd Exam Comprehensive
[2021-12-02 16:31] VITALS: BP 167/82; PULSE 87; RESP 18; TEMP 36.3; O2SAT 96; BMI 28.7
--- NOTE | 2021-12-02 16:39 | PC.NURSE ---
PT DENIES SI AT TIME OF TRIAGE BUT DID STATE HE WAS SI WHEN HE FELL EARLIER BECAUSE HIS BACK PAIN WAS SEVERE. PT PLACED ON MONITOR D/T HIGH BP. SITTER WITH PT FOR PT SAFETY.
--- NOTE | 2021-12-02 16:42 | PC.PHAR ---
pt states the medications we have entered are the correct medications he takes states he was just discharged
--- NOTE | 2021-12-02 17:26 | CTR_ITS ---
PROCEDURE INFORMATION: Exam: CT Lumbar Spine Without Contrast Exam date and time: 12/02/2021 5:39 PM Age: 56 years old Clinical indication: Low back pain TECHNIQUE: Imaging protocol: Computed tomography of the lumbar spine without contrast. Radiation optimization: All CT scans at this facility use at least one of these dose optimization techniques: automated exposure control; mA and/or kV adjustment per patient size (includes targeted exams where dose is matched to clinical indication); or iterative reconstruction. COMPARISON: US renal BI* [id number] 11/26/2021 6:33 PM RADIATION DOSE METRICS: Total DLP (mGy-cm): 1004.99 FINDINGS: Bones/joints: L1 vertebral body compression fracture with at least 50% loss of height with some retropulsion of bony fragments resulting in mild spinal canal narrowing. L1-L2: No significant disc protrusion. No severe spinal canal stenosis. No significant neural foraminal narrowing. L2-L3: L2-L3 broad-based disc bulge resulting in rvcw-pw-xeaveavz bilateral foraminal narrowing. L3-L4: No significant disc protrusion. No severe spinal canal stenosis. No significant neural foraminal narrowing. L4-L5: L4-L5 broad-based disc bulge with iyrs-ac-uhrlksim spinal canal and bilateral foraminal narrowing. L4-L5 broad-based disc bulge with moderate spinal canal and bilateral foraminal narrowing. L5-S1: L5/S1 broad-based disc bulge with mild spinal canal and moderate bilateral foraminal narrowing. Soft tissues: Diverticulosis without diverticulitis. CT/CT lumbar spine wo con* [id number] IMPRESSION: 1. L1 vertebral body compression fracture with at least 50% loss of height with some retropulsion of bony fragments resulting in mild spinal canal narrowing. 2. L2-L3 broad-based disc bulge resulting in oqlh-lt-pelochhv bilateral foraminal narrowing. 3. L4-L5 broad-based disc bulge with mhin-fx-stdzqxpj spinal canal and bilateral foraminal narrowing. 4. L4-L5 broad-based disc bulge with moderate spinal canal and bilateral foraminal narrowing. 5. L5/S1 broad-based disc bulge with mild spinal canal and moderate bilateral foraminal narrowing. 6. Diverticulosis without diverticulitis.
[2021-12-02] MEDS: acetaminophen 500 mg Tablet PO (17:55)
[2021-12-02 17:56] VITALS: RESP 19
[2021-12-02] MEDS: morphine 4 mg/mL SDV 1 mL IM (17:56)
[2021-12-02] MEDS: lidocaine 5% Patch 1 PATCH TOPICAL (17:57)
[2021-12-02 17:59] VITALS: BP 135/82; PULSE 78; RESP 18; O2SAT 100
[2021-12-02 18:30] VITALS: RESP 18; O2SAT 99
[2021-12-02 18:45] VITALS: BP 166/87; PULSE 84; RESP 17; O2SAT 99
[2021-12-02 18:58] LABS: Basophils % 0.3 %; Eosinophils % 0.1 %; Hematocrit 42.9 % (42.0-52.0); Hemoglobin 14.1 g/dL (11.7-16.6); Lymphocytes # 0.7 10^3/uL (0.8-4.8); Lymphocytes % 5.9 %; Mean Corpuscular HGB Conc 32.9 g/dL (30.0-36.0); Mean Corpuscular Hemoglobin 31.1 pg (28.0-34.0); Mean Corpuscular Volume 94.5 fl (80-94); Mean Platelet Volume 10.4 fL (7.4-10.4); Monocytes # 0.6 10^3/uL (0.2-0.9); Monocytes % 4.7 %; Neutrophils % 88.6 %; Nucleated Red Blood Cells % 0 %; Platelet Count 198 10^3/cmm (130-400); Red Blood Count 4.54 10^6/uL (4.1-5.3); Red Cell Distribution Width 13.1 % (12.1-15.1); White Blood Count 11.6 10^3/uL (4.0-10.0)
[2021-12-02 19:24] LABS: Anion Gap 19.2 (5-19); Blood Urea Nitrogen 30 mg/dL (6-20); Calcium 9.3 mg/dL (8.5-10.5); Carbon Dioxide 23 mmol/L (22-29); Chloride 97 mmol/L (98-107); Glomerular Filtration Rate 62.9 mL/min (90-130); Glucose 93 mg/dL (65-115); Osmolality Calculated 286 mOsm/kg (285-295); Potassium 4.2 mmol/L (3.5-5.1); Sodium 135 mmol/L (136-145)
--- NOTE | 2021-12-05 10:07 | PC.SOCIAL ---
Addendum entered by Stacy Thomas 12/08/21 15:54: Patient had a follow up appointment scheduled for 12.06.21 with ortho - patient did attend appointment. Original Note: Ortho Referral Consult received that patient needs to see Dr. Alexander for vertebral fx on 12/02/21 at 1920. Message sent to ortho clinic for appointment. Clinic will contact patient with appointment date and time.
--- NOTE | 2021-12-05 11:06 | PC.SOCIAL ---
Addendum entered by Stacy Thomas 12/16/21 13:11: arts manager received the following message from [facility] regarding follow up appointment; I called him to explain walk in assessment. He did not answer the phone. Original Note: [facility] F/u Message sent to [facility] for f/u for depression. Clinic will contact patient with appointment date and time.
== END 2021-12-02 20:03 | disposition home or self-care (01) ==
PROVIDERS: Emergency Provider Emergency Medicine; PCP Family Medicine
DX: S32.019A Unspecified fracture of first lumbar vertebra, initial encounter for closed fracture (principal); I11.0 Hypertensive heart disease with heart failure; I50.9 Heart failure, unspecified; F17.210 Nicotine dependence, cigarettes, uncomplicated; W19.XXXA Unspecified fall, initial encounter
CPT/HCPCS: 72131; 80048; 85025; 96372; 99285; J2270

== ENCOUNTER 2021-12-04 17:02 | Emergency (ER) | payer MEDICAID, SELFPAY ==
[2021-12-04 17:04] VITALS: BP 182/101; PULSE 90; RESP 14; O2SAT 94; BMI 28.7
--- NOTE | 2021-12-04 17:12 | CTR_ITS ---
PROCEDURE INFORMATION: Exam: CT Lumbar Spine Without Contrast Exam date and time: 12/04/2021 5:27 PM Age: 56 years old Clinical indication: Low back pain TECHNIQUE: Imaging protocol: Computed tomography of the lumbar spine without contrast. Sagittal and coronal reformatted images were created and reviewed. Radiation optimization: All CT scans at this facility use at least one of these dose optimization techniques: automated exposure control; mA and/or kV adjustment per patient size (includes targeted exams where dose is matched to clinical indication); or iterative reconstruction. COMPARISON: CT lumbar spine wo con* [id number] 12/02/2021 5:39 PM RADIATION DOSE METRICS: Total DLP (mGy-cm): 870.78 FINDINGS: Bones/joints: Redemonstration of an acute moderate compression fracture of L1. Mild retropulsion of bone at L1 with mild spinal canal stenosis. Findings are stable. No subluxation. Stable multilevel degenerative changes of varying severity in the visualized spine. Stable mild spinal canal stenosis and mild to moderate foraminal stenosis at L2-L3 through L5-S1 secondary to degenerative change. Stable bridging anterior osteophytes at the right and left sacroiliac joints, consistent with degenerative change. Vasculature: Mild atherosclerotic changes in the visualized arteries. No evidence for aortic aneurysm. Soft tissues: Stable mild paravertebral soft tissue inflammation around the L1 vertebra. No radiopaque foreign body. CT/CT lumbar spine wo con* [id number] IMPRESSION: 1. Redemonstration of an acute moderate compression fracture of L1. Mild retropulsion of bone at L1 with mild spinal canal stenosis. Findings are stable. 2. Stable mild paravertebral soft tissue inflammation around the L1 vertebra. 3. Stable multilevel degenerative changes of varying severity in the visualized spine. 4. Stable mild spinal canal stenosis and mild to moderate foraminal stenosis at L2-L3 through L5-S1 secondary to degenerative change. 5. Stable bridging anterior osteophytes at the right and left sacroiliac joints, consistent with degenerative change. 6. Incidental/nonacute findings are listed in the report.
--- NOTE | 2021-12-04 17:15 | W.ED.GENADLT ---
HPI - General Adult General: Chief complaint: Weakness Stated complaint: WEAKNESS Time Seen by Provider: 12/04/21 17:04 History of Present Illness: Patient is a 56-year-old male with a recently diagnosed L1 compression fracture currently on a TLSO brace, homeless at halfway presenting to the emergency with complaints of worsening back pain. Patient tells me that since his discharge from the hospital after diagnosis of L1 compression fracture, patient has not been able to take or move his medicine at the homeless halfway. Patient tells me that earlier this morning he was having severe back pain and is unable to get out of bed. Patient reports peeing on himself. Homeless halfway called EMS and patient was brought to the emergency room for complaints of back pain. Patient denies any urinary incontinence of bladder or bowel incontinence. Also denied any numbness in the groin or weakness or decreased sensations in the lower extremities. Patient told me that he urinated on himself because he could not get to the bathroom. Patient denies any weakness in the arms or legs knees or wrists reported persistent back pain. Patient denies any trauma reports wearing a TLSO brace. Denies nausea/vomiting, fever/chill, chest pain, shortness of breath, abdominal pain, dysuria/hematuria/polyuria, diarrhea/melena/hematochezia. Onset: 12/02/2021 Duration:ongoing Location:home Severity:moderate Associated symptoms: Deny chest pain, dyspnea, nausea, rash, palpitations or vomiting Review of Systems Const: Denies: fever(s) or chills Eyes: Denies: change in vision ENMT: Denies: mouth pain Card: Denies: chest pain or palpitations Resp: Denies: dyspnea or non-productive cough GI: Denies: abdominal pain, nausea, vomiting or diarrhea : Denies: dysuria Musc: Reports: back pain (+lower back pain); Denies: extremity pain Skin/Breast: Denies: rash or new lesions Neuro: Denies: weakness in extremities Psych: Reports: other (Normal mood) Abran/Lymph: Denies: easy bruising [facility] ED PFSH: Medical History COVID-19 Diastolic heart failure due to valvular disease Financial difficulty HTN (hypertension) Nicotine dependence Polycythemia Sheltered homelessness Uncontrolled hypertension Surgical History H/O hand surgery Family History Father Hypertension Other Hyperlipidemia Denies family history of Diabetes CAD (coronary artery disease) Clotting disorder Dementia Chronic kidney disease (CKD) Anesthesia complication Bleeding disorder Lung disease Cancer Stroke Social History Smoking and tobacco status: current every day smoker (0.5ppd) cigarettes Packs smoked per day: 0.5 Years cigarettes smoked: 40 [ Other cigarette details: 05 PPD since 8yrs old. 24PY. longest time quit for was 6 months.] Alcohol intake: former Former alcohol use details: Quit due to inability to afford alcohol Desire information about alcohol rehabilitation?: No Counseling given: No Desire information about substance/drug rehabilitation?: No Counseling given: No Adopted: No Caregiver/support person: No Lives independently: No service: No Current occupational status: unemployed Current gender identity: Male Special walter needs: No Physical Exam Const: COMMON NORMALS: alert HENMT: COMMON NORMALS: atraumatic HEAD & SCALP: atraumatic MOUTH: moist mucous membranes not abnormal Eye: COMMON NORMALS: EOMs intact bilaterally and conjunctivae normal CONJUNCTIVA: Yes conjunctivae normal Neck/C-Spine: COMMON NORMALS: full ROM and supple Resp: COMMON NORMALS: normal respiratory effort and clear to auscultation bilaterally AUSCULTATION: clear to auscultation bilaterally Cardio: COMMON NORMALS: regular rate RATE: regular rate GI: COMMON NORMALS: Soft to palpation and non-tender PALPATION: Yes Soft to palpation Back/Pelvis: OTHER: Lumbar area midline and paraspinal tenderness to palpation Extremity: COMMON NORMALS: full ROM OTHER: strength 5/5 in all extremities Sensations intact in extremities Neuro: SENSORIUM/ORIENTATION: Yes alert MOTOR EXAM: No Abnormal motor strength present and Other motor observations present (no focal motor deficits) Psych: COMMON NORMALS: speech normal SPEECH: Yes normal speech MOOD & AFFECT: Yes euthymic mood Course Vital Signs: Vital signs: Vital Signs Pulse Rate 90 12/04/21 17:04 Respiratory Rate 15 12/04/21 17:36 Blood Pressure 182/101 12/04/21 17:04 Pulse Oximetry 95 12/04/21 17:36 Oxygen Delivery Me thod 12/04/21 17:04 MDM - General Adult Medical Decision Making Patient is a 56-year-old male with a recently diagnosed L1 compression fracture currently on a TLSO brace, homeless at halfway presenting to the emergency with complaints of worsening back pain. On exam, patient has paraspinal and midline lumbar area tenderness. Patient has 5/5 strength in the lower extremity with intact sensation. Do not suspect acute cord compression at this time. Repeat lumbar imaging did not show any worsening compression fracture. At the present time, patient has appointment with orthopedic spine. We will discharge patient home with TLSO brace. Disposition: Discharge. Patient counseled regarding diagnostic impression, treatment plan. Patient given ED strict return precautions to return for continuation, worsening, or development of new symptoms. Instructed to f/u w/ Orthopedic spine regarding symptoms today. Patient verbalized understanding. Lab Data : 12/04/21 16:45 12/04/21 16:45 Radiology Impressions Lumbar Spine CT 12/04/21 17:12 IMPRESSION: 1. Redemonstration of an acute moderate compression fracture of L1. Mild retropulsion of bone at L1 with mild spinal canal stenosis. Findings are stable. 2. Stable mild paravertebral soft tissue inflammation around the L1 vertebra. 3. Stable multilevel degenerative changes of varying severity in the visualized spine. 4. Stable mild spinal canal stenosis and mild to moderate foraminal stenosis at L2-L3 through L5-S1 secondary to degenerative change. 5. Stable bridging anterior osteophytes at the right and left sacroiliac joints, consistent with degenerative change. 6. Incidental/nonacute findings are listed in the report. Laboratory Results WBC 9.0 10^3/uL (4.0-10.0) 12/04/21 16:45 RBC 5.24 10^6/uL (4.1-5.3) 12/04/21 16:45 Hgb 16.5 g/dL (11.7-16.6) 12/04/21 16:45 Hct 47.5 % (42.0-52.0) 12/04/21 16:45 MCV 90.6 fl (80-94) 12/04/21 16:45 MCH 31.5 pg (28.0-34.0) 12/04/21 16:45 MCHC 34.7 g/dL (30.0-36.0) 12/04/21 16:45 RDW 12.8 % (12.1-15.1) 12/04/21 16:45 Plt Count 265 10^3/cmm (130-400) 12/04/21 16:45 MPV 10.6 fL (7.4-10.4) H 12/04/21 16:45 Neut % (Auto) 76.4 % 12/04/21 16:45 Lymph % (Auto) 14.9 % 12/04/21 16:45 Ashley % (Auto) 5.7 % 12/04/21 16:45 Eos % (Auto) 1.8 % 12/04/21 16:45 Baso % (Auto) 0.6 % 12/04/21 16:45 Neut # (Auto) 6.91 10^3/uL (1.8-7.7) 12/04/21 16:45 Lymph # (Auto) 1.3 10^3/uL (0.8-4.8) 12/04/21 16:45 Ashley # (Auto) 0.5 10^3/uL (0.2-0.9) 12/04/21 16:45 Eos # (Auto) 0.2 10^3/uL (0.0-0.8) 12/04/21 16:45 Baso # (Auto) 0.1 10^3/uL (0.0-0.1) 12/04/21 16:45 Nucleated RBC % (auto) 0 % 12/04/21 16:45 Nucleated RBCs # 0.0 /100WBC 12/04/21 16:45 Sodium 139 mmol/L (136-145) 12/04/21 16:45 Potassium 3.8 mmol/L (3.5-5.1) 12/04/21 16:45 Chloride 100 mmol/L (98-107) 12/04/21 16:45 Carbon Dioxide 25 mmol/L (22-29) 12/04/21 16:45 Anion Gap 17.8 (5-19) 12/04/21 16:45 BUN 23 mg/dL (6-20) H 12/04/21 16:45 Creatinine 1.0 mg/dL (0.7-1.2) 12/04/21 16:45 GFR Calculation 77.6 mL/min (90-130) L 12/04/21 16:45 Glucose 103 mg/dL (65-115) 12/04/21 16:45 Calculated Osmolality 292 mOsm/kg (285-295) 12/04/21 16:45 Calcium 10.1 mg/dL (8.5-10.5) 12/04/21 16:45 Imaging Data Other Imaging: Radiologist's impression: [facility] [address] [place] [address] CT Scan Report Signed Patient: Lj Wynn Unit #: [id number] : 1965 Age/Sex: 56 / M ADM Date: 12/04/21 Loc: ER Room/Bed: Attending Dr: Ordering Provider/Ordering MD: Eliana Painting MD Date of Service: 12/04/21 Procedure(s): CT lumbar spine wo con* [id number] Accession Number(s): [id number] Report Number: [id number] PROCEDURE INFORMATION: Exam: CT Lumbar Spine Without Contrast Exam date and time: 12/04/2021 5:27 PM Age: 56 years old Clinical indication: Low back pain TECHNIQUE: Imaging protocol: Computed tomography of the lumbar spine without contrast. Sagittal and coronal reformatted images were created and reviewed. Radiation optimization: All CT scans at this facility use at least one of these dose optimization techniques: automated exposure control; mA and/or kV adjustment per patient size (includes targeted exams where dose is matched to clinical indication); or iterative reconstruction. COMPARISON: CT lumbar spine wo con* [id number] 12/02/2021 5:39 PM RADIATION DOSE METRICS: Total DLP (mGy-cm): 870.78 FINDINGS: Bones/joints: Redemonstration of an acute moderate compression fracture of L1. Mild retropulsion of bone at L1 with mild spinal canal stenosis. Findings are stable. No subluxation. Stable multilevel degenerative changes of varying severity in the visualized spine. Stable mild spinal canal stenosis and mild to moderate foraminal stenosis at L2-L3 through L5-S1 secondary to degenerative change. Stable bridging anterior osteophytes at the right and left sacroiliac joints, consistent with degenerative change. Vasculature: Mild atherosclerotic changes in the visualized arteries. No evidence for aortic aneurysm. Soft tissues: Stable mild paravertebral soft tissue inflammation around the L1 vertebra. No radiopaque foreign body. CT/CT lumbar spine wo con* [id number] IMPRESSION: 1. Redemonstration of an acute moderate compression fracture of L1. Mild retropulsion of bone at L1 with mild spinal canal stenosis. Findings are stable. 2. Stable mild paravertebral soft tissue inflammation around the L1 vertebra. 3. Stable multilevel degenerative changes of varying severity in the visualized spine. 4. Stable mild spinal canal stenosis and mild to moderate foraminal stenosis at L2-L3 through L5-S1 secondary to degenerative change. 5. Stable bridging anterior osteophytes at the right and left sacroiliac joints, consistent with degenerative change. 6. Incidental/nonacute findings are listed in the report. ? Dictated By: Katie Hopkins MD Signed By: Katie Hopkins MD Signed Date/Time: 12/04/211921 Discharge Plan Discharge Patient Disposition: Home Clinical Impression: Back pain, Compression fracture Condition: Stable Prescriptions: No Action baclofen 10 mg tablet 10 mg PO Q8H PRN (Reason: muscle spasm) Qty: 9 0RF lidocaine 5 % adhesive patch,medicated 1 patch topical DAILY PRN (Reason: pain) 30 Days Qty: 30 0RF Rx Instructions: leave on most painful area for up to 12 hrs orphenadrine citrate 100 mg tablet extended release 100 mg PO BID PRN (Reason: pain) 10 Days Qty: 20 0RF Biofreeze (menthol) 5 % gel 1 ea topical BID PRN (Reason: pain) 10 Days Qty: 1 0RF Percocet 5-325 mg tablet 1 tab PO Q8H PRN (Reason: pain) Qty: 9 0RF amlodipine 10 mg Tablet 10 mg PO DAILY Qty: 90 0RF clonidine HCl 0.2 mg tablet 0.2 mg PO TID 90 Days Qty: 270 0RF hydralazine 100 mg tablet 50 mg PO TID 90 Days Qty: 270 0RF Discharge Orders: Discharge ED (Routine); Ordered 12/04/21 Ordered By: Eliana Painting Other Ambulatory Orders: DME: Miscellaneous (Order) Location: None Selected Ordered By: Eliana Painting Referrals: Malik Salinas MD [Primary Care Provider] - Discharge Diet: Advance as tolerated Discharge Activity: Increase activity as tolerated Patient Instructions: Opioid Safety, Pain Management Activity Restrictions/Additional Instructions: Please come back to the emergency room to have worsening back pain, if have any problem with urination and bowel movementm if you have any weakness in the legs, numbness in the legs, or if you have any new or concerning complaints. Coding Level of Care Code ED Blueprinter for Meghann Fwelba Exam Comprehensive
[2021-12-04 17:19] LABS: Basophils # 0.1 10^3/uL (0.0-0.1); Basophils % 0.6 %; Eosinophils # 0.2 10^3/uL (0.0-0.8); Eosinophils % 1.8 %; Hematocrit 47.5 % (42.0-52.0); Hemoglobin 16.5 g/dL (11.7-16.6); Lymphocytes # 1.3 10^3/uL (0.8-4.8); Lymphocytes % 14.9 %; Mean Corpuscular HGB Conc 34.7 g/dL (30.0-36.0); Mean Corpuscular Hemoglobin 31.5 pg (28.0-34.0); Mean Corpuscular Volume 90.6 fl (80-94); Mean Platelet Volume 10.6 fL (7.4-10.4); Monocytes # 0.5 10^3/uL (0.2-0.9); Monocytes % 5.7 %; Neutrophils # 6.91 10^3/uL (1.8-7.7); Neutrophils % 76.4 %; Nucleated Red Blood Cells % 0 %; Platelet Count 265 10^3/cmm (130-400); Red Blood Count 5.24 10^6/uL (4.1-5.3); Red Cell Distribution Width 12.8 % (12.1-15.1)
[2021-12-04 17:36] VITALS: RESP 15; O2SAT 95
[2021-12-04] MEDS: morphine 4 mg/mL SDV 1 mL IM (17:36)
[2021-12-04 17:43] LABS: Anion Gap 17.8 (5-19); Blood Urea Nitrogen 23 mg/dL (6-20); Calcium 10.1 mg/dL (8.5-10.5); Carbon Dioxide 25 mmol/L (22-29); Chloride 100 mmol/L (98-107); Glomerular Filtration Rate 77.6 mL/min (90-130); Glucose 103 mg/dL (65-115); Osmolality Calculated 292 mOsm/kg (285-295); Potassium 3.8 mmol/L (3.5-5.1); Sodium 139 mmol/L (136-145)
[2021-12-04 23:45] VITALS: BP 166/91; PULSE 89; RESP 18; O2SAT 97
[2021-12-05 07:30] VITALS: BP 125/73; PULSE 89; RESP 18; O2SAT 97
== END 2021-12-05 07:31 | disposition home or self-care (01) ==
PROVIDERS: Emergency Provider Emergency Medicine; PCP Family Medicine
DX: S32.010A Wedge compression fracture of first lumbar vertebra, initial encounter for closed fracture (principal); F17.210 Nicotine dependence, cigarettes, uncomplicated; I11.0 Hypertensive heart disease with heart failure; I50.30 Unspecified diastolic (congestive) heart failure; Z59.01 Sheltered homelessness; X58.XXXA Exposure to other specified factors, initial encounter
CPT/HCPCS: 72131; 80048; 85025; 96372; 99284; J2270

== ENCOUNTER → 2021-12-06 08:42 | Outpatient (BNVA) | payer MEDICAID, SELFPAY | PROVIDERS: PCP Family Medicine; Visit Provider Physician Assistant | DX: S32.010A Wedge compression fracture of first lumbar vertebra, initial encounter for closed fracture (principal); W18.2XXA Fall in (into) shower or empty bathtub, initial encounter; M47.816 Spondylosis without myelopathy or radiculopathy, lumbar region; R29.890 Loss of height; Z59.01 Sheltered homelessness | CPT/HCPCS: 72100 ==

== ENCOUNTER 2021-12-15 04:38 | Emergency (ER) | payer MEDICAID, SELFPAY ==
[2021-12-15 04:39] VITALS: BP 201/112; PULSE 93; RESP 16; TEMP 36.4; O2SAT 91; BMI 30.7
--- NOTE | 2021-12-15 04:43 | ECG_ITS ---
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 Measurements Intervals [place] Rate: 90 P: 44 [place]: 144 QRS: 7 QRSD: 104 T: 63 QT: 370 QTc: 455 Interpretive Statements SINUS RHYTHM NONSPECIFIC T-WAVE ABNORMALITY Compared to ECG 11/30/2021 17:43:23 No significant changes Electronically Signed On 12-15-2021 11:07:17 CDT by Rodo Graham M.D. [id number] f
--- NOTE | 2021-12-15 04:43 | XRR_ITS ---
PROCEDURE INFORMATION: Exam: XR Chest Exam date and time: 12/15/2021 4:51 AM Age: 56 years old Clinical indication: Other: HTN; Patient HX: assisted PT. Rn states that he has a broken back TECHNIQUE: Imaging protocol: Radiologic exam of the chest. Views: 1 view. COMPARISON: CR XR chest 1V portable [id number] 11/30/2021 4:09 PM FINDINGS: Lungs: Poor inspiration somewhat limits evaluation, especially of the lung bases. No definite CHF/pulmonary edema. Visible lungs appear essentially clear. Pleural spaces: No visible pneumothorax. No definite pleural fluid. Heart/Mediastinum: Heart size appears mildly prominent. Bones/joints: No significant acute finding. XR/XR chest 1V portable [id number] IMPRESSION: 1. No definite CHF or pneumonia. 2. Other findings discussed above.
[2021-12-15 04:46] VITALS: PULSE 92; O2SAT 95
--- NOTE | 2021-12-15 04:49 | ED_ITS ---
HPI - General Adult General: Chief complaint: General Medical Stated complaint: NAUSEA Time Seen by Provider: 12/15/21 04:43 Source: EMS Mode of arrival: EMS Limitations: physical limitation History of Present Illness: 56-year-old male who is here from group home after history of a recent stroke within the last week he has been at the group home for 1 day he is nonverbal from the stroke and bedbound. Per group home he had an episode of vomiting that appeared dark in nature he is also been hyp ertensive. No history available from patient being nonverbal. Review of Systems General: Reports: ROS unobtainable due to mental status PFS ED PFSH: Medical History COVID-19 Diastolic heart failure due to valvular disease Financial difficulty HTN (hypertension) Nicotine dependence Polycythemia Sheltered homelessness Stroke Uncontrolled hypertension Surgical History H/O hand surgery Family History Father Hypertension Other Hyperlipidemia Denies family history of Diabetes CAD (coronary artery disease) Clotting disorder Dementia Chronic kidney disease (CKD) Anesthesia complication Bleeding disorder Lung disease Cancer Stroke Social History Smoking and tobacco status: current every day smoker cigarettes Packs smoked per day: 0.5 Years cigarettes smoked: 40 [ Other cigarette details: 05 PPD since 8yrs old. 24PY. longest time quit for was 6 months.] Alcohol intake: former Former alcohol use details: Quit due to inability to afford alcohol Desire information about alcohol rehabilitation?: No Counseling given: No Desire information about substance/drug rehabilitation?: No Counseling given: No Adopted: No Caregiver/support person: No Lives independently: No service: No Current occupational status: unemployed Current gender identity: Male Special walter needs: No Physical Exam Const: COMMON NORMALS: negative for patient oriented x3 HENMT: COMMON NORMALS: normocephalic and atraumatic HEAD & SCALP: normocephalic and atraumatic Eye: COMMON NORMALS: Equal, round and reactive pupils present and EOMs intact bilaterally PUPIL: Yes Equal, round and reactive pupils present Neck/C-Spine: COMMON NORMALS: full ROM and supple Chest: COMMONS NORMALS: normal inspection of the chest and normal palpation of entire chest wall Resp: COMMON NORMALS: normal respiratory effort, No retractions, No use of accessory muscles and clear to auscultation bilaterally AUSCULTATION: clear to auscultation bilaterally Cardio: COMMON NORMALS: regular rate, regular rhythm and No murmurs present (Cardio) RATE: regular rate RHYTHM: regular rhythm GI: COMMON NORMALS: Normal to inspection, nondistended, normoactive bowel sounds present, Soft to palpation, non-tender and no masses PALPATION: Yes Soft to palpation RECTAL EXAM: No Abnormal stool present, No heme positive stool and No hemorrhoids Extremity: COMMON NORMALS: normal to inspection and full ROM Neuro: COMMON NORMALS: negative for patient oriented x3 Psych: COMMON NORMALS: mental status grossly normal, Normal thought process present and cooperative THOUGHT PROCESS: Normal thought process present Skin: COMMON NORMALS: no rashes or lesions noted and no wounds GENERAL SKIN EXAM: no rashes or lesions noted Course Vital Signs: Vital signs: Vital Signs Temperature 97.5 F L 12/15/21 04:39 Pulse Rate 92 12/15/21 04:46 Respiratory Rate 16 12/15/21 04:39 Blood Pressure 201/112 12/15/21 04:39 Pulse Oximetry 95 12/15/21 04:46 Oxygen Delivery Me thod 12/15/21 04:46 Oxygen Flow Rate 3 12/15/21 04:46 [facility] - General Adult Medical Decision Making Patient presents here after vomiting in group home along with high blood pressure he is well-appearing here he is requiring 2 L but he is sleeping he has no signs of aspiration pneumonia blood pressure here is improved he stable for discharge back to the group home at this time he is return if worsening Lab Data : 12/15/21 04:42 12/15/21 04:42 Radiology Impressions Chest X-Ray 12/15/21 04:43 IMPRESSION: 1. No definite CHF or pneumonia. 2. Other findings discussed above. Laboratory Results WBC 11.0 10^3/uL (4.0-10.0) H 12/15/21 04:42 RBC 4.87 10^6/uL (4.1-5.3) 12/15/21 04:42 Hgb 15.0 g/dL (11.7-16.6) 12/15/21 04:42 Hct 44.4 % (42.0-52.0) 12/15/21 04:42 MCV 91.2 fl (80-94) 12/15/21 04:42 MCH 30.8 pg (28.0-34.0) 12/15/21 04:42 MCHC 33.8 g/dL (30.0-36.0) 12/15/21 04:42 RDW 12.9 % (12.1-15.1) 12/15/21 04:42 Plt Count 128 10^3/cmm (130-400) L 12/15/21 04:42 MPV 11.1 fL (7.4-10.4) H 12/15/21 04:42 Neut % (Auto) 86.7 % 12/15/21 04:42 Lymph % (Auto) 5.7 % 12/15/21 04:42 Titus % (Auto) 4.4 % 12/15/21 04:42 Eos % (Auto) 2.0 % 12/15/21 04:42 Baso % (Auto) 0.5 % 12/15/21 04:42 Neut # (Auto) 9.56 10^3/uL (1.8-7.7) H 12/15/21 04:42 Lymph # (Auto) 0.6 10^3/uL (0.8-4.8) L 12/15/21 04:42 Titus # (Auto) 0.5 10^3/uL (0.2-0.9) 12/15/21 04:42 Eos # (Auto) 0.2 10^3/uL (0.0-0.8) 12/15/21 04:42 Baso # (Auto) 0.1 10^3/uL (0.0-0.1) 12/15/21 04:42 Nucleated RBC % (auto) 0 % 12/15/21 04:42 Nucleated RBCs # 0.0 /100WBC 12/15/21 04:42 PT 13.90 SECONDS (12.1-14.9) 12/15/21 04:42 INR 1.04 (0.8-1.2) 12/15/21 04:42 Sodium 138 mmol/L (136-145) 12/15/21 04:42 Potassium 3.6 mmol/L (3.5-5.1) 12/15/21 04:42 Chloride 97 mmol/L (98-107) L 12/15/21 04:42 Carbon Dioxide 29 mmol/L (22-29) 12/15/21 04:42 Anion Gap 15.6 (5-19) 12/15/21 04:42 BUN 14 mg/dL (6-20) 12/15/21 04:42 Creatinine 1.0 mg/dL (0.7-1.2) 12/15/21 04:42 GFR Calculation 77.6 mL/min (90-130) L 12/15/21 04:42 Glucose 111 mg/dL (65-115) 12/15/21 04:42 Calculated Osmolality 287 mOsm/kg (285-295) 12/15/21 04:42 Calcium 9.5 mg/dL (8.5-10.5) 12/15/21 04:42 Total Bilirubin 0.4 mg/dL (0.15-1.2) 12/15/21 04:42 AST 12 U/L (0-40) 12/15/21 04:42 ALT 11 U/L (0-41) 12/15/21 04:42 Alkaline Phosphatase 142 U/L (40-130) H 12/15/21 04:42 Total Protein 6.7 g/dL (6.6-8.7) 12/15/21 04:42 Albumin 3.4 g/dL (3.5-5.2) L 12/15/21 04:42 Globulin 3.3 g/dL (1.3-4.6) 12/15/21 04:42 EKG Data EKG 1: I personally reviewed and interpreted this EKG as follows: EKG interpretation date: 12/15/21 EKG interpretation time: 04:47 Interpretation: nsr hr [address] or t wave abnormalities qrs 104 qtc 418 Computer generated interpretation: Chest X-Ray 12/15/21 04:43 IMPRESSION: 1. No definite CHF or pneumonia. 2. Other findings discussed above. Discharge Plan Discharge Patient Disposition: Home Clinical Impression: Vomiting, Hypertension Condition: Stable Prescriptions: New ondansetron 4 mg tablet,disintegrating 4 mg PO Q6H PRN (Reason: nausea and vomiting) Qty: 14 0RF No Action magnesium glycinate 100 mg tablet 400 mg PO DAILY tramadol 50 mg tablet 50 mg PO Q4H PRN (Reason: pain) Qty: 60 0RF polyethylene glycol 3350 [Miralax] 17 gram/dose powder 17 g PO TID Qty: 238 0RF (DME) portable commode See Rx Instructions .Route .MEDSUPPLY Qty: 1 0RF Rx Instructions: Keep at bedside for short transfer to use bathroom amlodipine 10 mg Tablet 10 mg PO DAILY Qty: 90 0RF clonidine HCl 0.2 mg tablet 0.2 mg PO TID 90 Days Qty: 270 0RF hydralazine 100 mg tablet 50 mg PO TID 90 Days Qty: 270 0RF Discharge Orders: Discharge ED (Routine); Ordered 12/15/21 Ordered By: Erick Sanderson Referrals: Malik Salinas MD [Primary Care Provider] - Discharge Diet: Advance as tolerated Discharge Activity: Resume usual activity Patient Instructions: Acute Nausea and Vomiting (ED), Hypertension (ED) Coding Level of Care Code ED Telephone Appointment Clerk for Chg Fwd Exam Comprehensive
[2021-12-15 04:52] LABS: Basophils # 0.1 10^3/uL (0.0-0.1); Basophils % 0.5 %; Eosinophils # 0.2 10^3/uL (0.0-0.8); Hematocrit 44.4 % (42.0-52.0); Lymphocytes # 0.6 10^3/uL (0.8-4.8); Lymphocytes % 5.7 %; Mean Corpuscular HGB Conc 33.8 g/dL (30.0-36.0); Mean Corpuscular Hemoglobin 30.8 pg (28.0-34.0); Mean Corpuscular Volume 91.2 fl (80-94); Mean Platelet Volume 11.1 fL (7.4-10.4); Monocytes # 0.5 10^3/uL (0.2-0.9); Monocytes % 4.4 %; Neutrophils # 9.56 10^3/uL (1.8-7.7); Neutrophils % 86.7 %; Nucleated Red Blood Cells % 0 %; Platelet Count 128 10^3/cmm (130-400); Red Blood Count 4.87 10^6/uL (4.1-5.3); Red Cell Distribution Width 12.9 % (12.1-15.1)
[2021-12-15] MEDS: labetalol 5 mg/mL SDV 20mL 10 MG IVP (05:00)
[2021-12-15 05:07] VITALS: BP 162/91; PULSE 79; O2SAT 96
[2021-12-15 05:07] LABS: Alanine Aminotransferase 11 U/L (0-41); Albumin Level 3.4 g/dL (3.5-5.2); Alkaline Phosphatase 142 U/L (40-130); Anion Gap 15.6 (5-19); Aspartate Amino Transferase 12 U/L (0-40); Blood Urea Nitrogen 14 mg/dL (6-20); Calcium 9.5 mg/dL (8.5-10.5); Carbon Dioxide 29 mmol/L (22-29); Chloride 97 mmol/L (98-107); Globulin 3.3 g/dL (1.3-4.6); Glomerular Filtration Rate 77.6 mL/min (90-130); Glucose 111 mg/dL (65-115); Osmolality Calculated 287 mOsm/kg (285-295); Potassium 3.6 mmol/L (3.5-5.1); Sodium 138 mmol/L (136-145); Total Bilirubin 0.4 mg/dL (0.15-1.2); Total Protein 6.7 g/dL (6.6-8.7)
[2021-12-15] MEDS: ondansetron 2 mg/ML SDV 2 mL 4 MG IVP (05:22)
[2021-12-15 05:29] LABS: INR 1.04 (0.8-1.2)
--- NOTE | 2021-12-15 05:52 | PC.NURSE ---
spoke with the custodial about sending pt back. pt has no insurance, discussed with custodial about sending transport van or arranging ambulance for transport back to facility.
[2021-12-15 08:30] VITALS: BP 184/107; PULSE 85; O2SAT 93
== END 2021-12-15 08:56 | disposition home or self-care (01) ==
PROVIDERS: Emergency Provider Emergency Medicine; PCP Family Medicine
DX: R11.11 Vomiting without nausea (principal); F17.210 Nicotine dependence, cigarettes, uncomplicated; I11.0 Hypertensive heart disease with heart failure; I50.9 Heart failure, unspecified; Z86.73 Personal history of transient ischemic attack (TIA), and cerebral infarction without residual deficits
CPT/HCPCS: 71045; 80053; 85025; 85610; 93005; 96374; 96375; 99285; J2405; J3490